=== PATIENT | male | born 1935 | race Caucasian/White ===

== ENCOUNTER → 2020-08-31 14:21 | Outpatient (BNVA) | payer MEDICARE, OTHER, SELFPAY | PROVIDERS: PCP Family Medicine; Visit Provider Internal Medicine Cardiovascular Disease | DX: I47.2 Ventricular tachycardia (principal) | CPT/HCPCS: 80048; 83735 ==

== ENCOUNTER 2020-12-28 09:55 | Emergency (ER) | payer MEDICARE, OTHER, SELFPAY ==
[2020-12-28 10:05] VITALS: BP 184/95; PULSE 84; RESP 19; TEMP 36.9; O2SAT 93; BMI 30.2
--- NOTE | 2020-12-28 10:19 | ED_ITS ---
HPI - Male Genitourinary General: Chief complaint: Urogenital-Male Stated complaint: TROUBLE USING RESTROOM Time Seen by Provider: 12/28/20 09:56 History of Present Illness: HPI Narrative: 85-year-old male presents emergency room with complaints of difficulty urinating. On he was seen at a local ER in [place] with urinary retention and had a leg bag placed with a Caro. 2 days later he remove the catheter at home did not see an attending physician. He is not currently taking any tamsulosin 1 or alpha blockers. Now he is complaining of lower pelvic cramping and discomfort has not been able to urinate for over 24 hours. MD Complaint: other (Unable to urinate) Onset (ago): day(s) Duration: constant Location: abdomen Severity: moderate Quality: aching Relieving factors: rest Exacerbating factors: movement Associated symptoms: Reports urinary retention; Deny discharge, dysuria, fevers/chills, hematuria, nausea, rash, swelling, urinary incontinence, mass or vomiting Review of Systems Const: Denies: fever(s), chills, body aches, change in appetite, fatigue or malaise ENMT: Denies: throat pain, ear or mastoid pain, nasal discharge or nasal congestion Card: Denies: chest pain, edema, dyspnea on exertion or orthopnea Resp: Denies: dyspnea, productive cough or non-productive cough GI: Denies: nausea or vomiting : Denies: dysuria, urinary incontinence or hematuria Skin/Breast: Denies: rash or pruritus Physical Exam Const: COMMON NORMALS: no acute distress GENERAL APPEARANCE: cooperative and comfortable ORIENTATION/CONSCIOUSNESS: Yes awake, Yes oriented to person, Yes oriented to place and Yes oriented to time HENMT: COMMON NORMALS: normocephalic, atraumatic, hearing grossly normal bilaterally, external ears normal, moist oral mucous membranes and oropharynx normal HEAD & SCALP: normocephalic and atraumatic EXTERNAL EAR: Yes external ears normal Neck/C-Spine: COMMON NORMALS: no JVD Resp: COMMON NORMALS: normal respiratory effort, No retractions, No use of accessory muscles and clear to auscultation bilaterally AUSCULTATION: clear to auscultation bilaterally Cardio: COMMON NORMALS: no JVD, regular rate, regular rhythm and No murmurs present (Cardio) RATE: regular rate RHYTHM: regular rhythm GI: COMMON NORMALS: Soft to palpation and No hepatosplenomegaly present AUSCULTATION: Yes normoactive bowel sounds PALPATION: Yes Soft to palpation, No Tenderness to palpation present (GI), No Guarding due to palpation present (GI) and Yes No hepatosplenomegaly present Extremity: COMMON NORMALS: normal to inspection, capillary refill normal, no clubbing, cyanosis or edema, no calf tenderness and no pedal edema Neuro: SENSORIUM/ORIENTATION: Yes oriented to person, Yes oriented to place and Yes oriented to time Skin: COMMON NORMALS: no rashes or lesions noted GENERAL SKIN EXAM: no rash es or lesions noted Course Vital Signs: Vital signs: Vital Signs Temperature 98.4 F 12/28/20 10:05 Pulse Rate 70 12/28/20 12:15 Respiratory Rate 18 12/28/20 12:15 Blood Pressure 104/88 12/28/20 12:15 Pulse Oximetry 92 12/28/20 12:15 MDM - Male MDM Narrative: Medical decision making narrative: Catheter placed patient large amount of urine output. We will go ahead and discharge home with leg bag in place start him on tamsulosin follow-up with Dr. Valenzuela advised him to leave the catheter in place until he seen Dr. Valenzuela. Additionally added lisinopril for his blood pressure. Lab Data: Labs: Lab Results 12/28/20 12/28/20 12/28/20 Range/Units 10:38 12:15 12:15 WBC Cancelled Corrected WBC Cancelled RBC Cancelled Hgb Cancelled Hct Cancelled MCV Cancelled MCH Cancelled MCHC Cancelled RDW Cancelled Plt Count Cancelled MPV Cancelled Gran % Cancelled Neut % (Auto) Cancelled Lymph % (Auto) Cancelled [place] % (Auto) Cancelled Eos % (Auto) Cancelled Baso % (Auto) Cancelled Neut # (Auto) Cancelled Lymph # (Auto) Cancelled [place] # (Auto) Cancelled Eos # (Auto) Cancelled Baso # (Auto) Cancelled Absolute Gran (aut o) Cancelled Nucleated RBC % (a uto) Cancelled Nucleated RBCs # Cancelled Sodium Cancelled Potassium Cancelled Chloride Cancelled Carbon Dioxide Cancelled Anion Gap Cancelled BUN Cancelled Creatinine Cancelled GFR Calculation Cancelled Glucose Cancelled Calculated Osmolal ity Cancelled Calcium Cancelled Urine Color Yellow (Yellow) Urine Appearance Sl hazy (CLEAR) Urine pH 6 (5-7) Ur Specific Gravit y 1.015 (1.005-1.030) Urine Protein Neg (Negative) Urine Glucose (UA) Norm (Normal) Urine Ketones Negative (Negative) Urine Blood 3+ H (Negative) Urine Nitrate Negative (Negative) Urine Bilirubin Neg (Negative) Urine Urobilinogen Norm (Negative) mg/dL Ur Leukocyte Yara ase Negative (Negative) Urine RBC 50-80 H (0-2) /hpf Urine WBC 0-4 H (0-5) /hpf Ur Squamous Epith Cells 0-4 H (0-5) /hpf Amorphous Sediment Not Reportable Urine Bacteria 2+ H (NONE) /hpf Discharge Plan Discharge Patient Disposition: Home Clinical Impression: Acute retention of urine, Benign prostatic hyperplasia, Bladder outlet obstruction Condition: Stable Prescriptions: New lisinopril 10 mg tablet 10 mg PO DAILY Qty: 30 RF: 0 tamsulosin 0.4 mg capsule 0.4 mg PO DAILY Qty: 30 RF: 0 No Action amlodipine 5 mg tablet 5 mg PO DAILY Qty: 90 RF: 0 potassium chloride 10 mEq tablet extended release See Rx Instructions .ROUTE .COMPLEX Qty: 90 RF: 0 simvastatin 40 mg tablet See Rx Instructions .ROUTE .COMPLEX Qty: 90 RF: 0 Discharge Orders: Discharge ED (Routine); Ordered 12/28/20 Ordered By: Andrew lLoyd Referrals: Lynne Camp MD [Primary Care Provider] - Discharge Diet: Usual diet Discharge Activity: Increase activity as tolerated Patient Instructions: Opioid Safety Activity Restrictions/Additional Instructions: This management will call to set up a follow-up with Dr. Valenzuela. Please leave the Caro cath in place until you see Dr. Valenzuela. We have also added a blood pressure medicine and a medicine for your prostate to relieve the urinary retention. If you have worsening problems return to the emergency room. 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
[2020-12-28 11:12] LABS: Add Urine Microscopic? YES; Bilirubin Urine Neg (Negative); Blood Urine 3+ (Negative); Glucose Urine UA Norm (Normal); Ketones Urine Negative (Negative); Leukocyte Esterase Urine Negative (Negative); Nitrate Urine Negative (Negative); Protein Urine Neg (Negative); Specific Gravity, Urine 1.015 (1.005-1.030); Urine Appearance SL Hazy (CLEAR); Urine Color Yellow (Yellow); Urobilinogen Urine Norm (Negative); pH Urine 6 (5-7)
[2020-12-28 11:24] LABS: RBC Urine 50-80 /hpf (0-2)
[2020-12-28 11:25] LABS: Add Urine Culture? Yes; Bacteria Urine 2+ /hpf; Squamous Epithelial Cell Urine 0-4 /hpf (0-5); WBC Urine 0-4 /hpf (0-5)
[2020-12-28 12:15] VITALS: BP 104/88; PULSE 70; RESP 18; O2SAT 92
== END 2020-12-28 12:22 | disposition home or self-care (01) ==
PROVIDERS: Emergency Provider Family Medicine; PCP Family Medicine
DX: N40.1 Benign prostatic hyperplasia with lower urinary tract symptoms (principal); R33.8 Other retention of urine; N13.8 Other obstructive and reflux uropathy
CPT/HCPCS: 51702; 81001; 85025; 87086; 99283

== ENCOUNTER → 2021-01-03 08:51 | Outpatient (BNVA) | payer MEDICARE, OTHER, SELFPAY | PROVIDERS: PCP Family Medicine; Visit Provider Nurse Practitioner Family | DX: I10 Essential (primary) hypertension (principal) | CPT/HCPCS: 80053; 80061; 84443; 85025 ==

== ENCOUNTER → 2021-02-08 14:33 | Outpatient (BNVA) | payer MEDICARE, OTHER, SELFPAY | PROVIDERS: PCP Family Medicine; Visit Provider Nurse Practitioner Family | DX: R79.89 Other specified abnormal findings of blood chemistry (principal) | CPT/HCPCS: 80076 ==

== ENCOUNTER 2021-03-18 10:16 | Outpatient (CLI) | payer MEDICARE, OTHER, SELFPAY ==
--- NOTE | 2021-03-18 11:00 | US_ITS ---
WS: [id number] Complete ABDOMINAL ULTRASOUND HISTORY: R74.8 - Abnormal levels of other serum enzymes COMPARISON: 01/08/2018 renal ultrasound Liver: 15.7 cm in length. Liver is normal size. Mild coarsened echotexture is probably from hepatic s teatosis. The entire liver is poorly visualized. Gallbladder: Normally distended gallbladder with stones. There are stones layering in the dependent p ortion with shadowing. Gallbladder wall thickness: 0.3 cm. Pancreas: Not well seen. CBD: 0.7 cm. Right kidney: 10.6 cm x 5.5 cm x 6.3 cm. Normal size kidney. Exophytic solid mass from the mid later al RIGHT kidney measures 3.8 x 4.3 x 4.2 cm and has increased in size since 2011. Slight increase in size since 01/08/2018 ultrasound also. Left kidney: 11.0 cm x 5.8 cm x 5.5 cm. No mass, cortical thickening or hydronephrosis. Spleen: Normal size and echogenicity. Poorly visualized aorta and IVC. No ascites. US/US abdomen complete* [id number] IMPRESSION: 1. Technically limited evaluation of the abdominal structures. 2. Cholelithiasis without acute cholecystitis. 3. No bile duct dilatation. 4. Mild progression in size of the RIGHT renal mass now measuring 3.8 x 4.3 x 4.2 cm. Most consistent with a renal cell neoplasm.
== END 2021-03-18 10:17 | disposition home or self-care (01) ==
LOC: US 10:19
PROVIDERS: PCP Family Medicine; Visit Provider Nurse Practitioner Family
DX: R74.8 Abnormal levels of other serum enzymes (principal); K80.20 Calculus of gallbladder without cholecystitis without obstruction
CPT/HCPCS: 76700

== ENCOUNTER → 2021-05-10 15:28 | Outpatient (BNVA) | payer MEDICARE, OTHER, SELFPAY | PROVIDERS: PCP Family Medicine; Visit Provider Urology | DX: N40.1 Benign prostatic hyperplasia with lower urinary tract symptoms (principal) | CPT/HCPCS: 81003 ==

== ENCOUNTER → 2021-07-14 00:01 | Outpatient (BNVA) | payer MEDICARE, OTHER, SELFPAY | PROVIDERS: PCP Family Medicine; Visit Provider Nurse Practitioner Family | DX: I10 Essential (primary) hypertension (principal); R10.11 Right upper quadrant pain; K80.20 Calculus of gallbladder without cholecystitis without obstruction; E78.5 Hyperlipidemia, unspecified | CPT/HCPCS: 80053; 80061; 84443; 85025 ==

== ENCOUNTER → 2021-09-20 09:47 | Outpatient (BNVA) | payer MEDICARE, OTHER, SELFPAY | PROVIDERS: PCP Family Medicine; Visit Provider Surgery | DX: Z20.822 Contact with and (suspected) exposure to COVID-19 (principal); Z11.52 Encounter for screening for COVID-19 | CPT/HCPCS: 87635 ==

== ENCOUNTER → 2021-09-30 11:23 | Outpatient (BNVA) | payer MEDICARE, OTHER, SELFPAY | PROVIDERS: PCP Family Medicine; Visit Provider Surgery | DX: Z01.812 Encounter for preprocedural laboratory examination (principal); Z20.822 Contact with and (suspected) exposure to COVID-19 | CPT/HCPCS: 87635 ==

== ENCOUNTER 2021-10-06 08:32 | Day surgery (SDC) | payer MEDICARE, OTHER, SELFPAY ==
[2021-09-23 17:24] VITALS: BMI 32.0
[2021-10-06] VITALS (10 sets, daily range): BP systolic 104–148; BP diastolic 66–95; PULSE 70–86; RESP 16–23; TEMP 36.1–37.1; O2SAT 92–98
[2021-10-06] MEDS: sodium chloride 0.9% 1,000 ML 30 ML IV (09:21)
--- NOTE | 2021-10-06 09:23 | P.ANESASSM_ITS ---
Pre-Anesthetic Assessment Pre-Anesthetic Assessment: Height/Weight: Height 1.57 m Weight 79.379 kg Temp Pulse Resp BP Pulse Ox 98.2 F 86 18 148/95 95 10/06/21 08:52 10/06/21 08:52 10/06/21 08:52 10/06/21 08:52 10/06/21 08:52 Preop Diagnosis: Cholelithiasis Proposed Procedure: Operation Date: 10/06/21 10:30 Proposed Procedures p Laparoscopic Cholecystectomy 07312 K80.20(Not Applicable) - Deepak Cordova MD Was Beta Felix taken within 24 hours: Yes Was Clonidine taken within 24 hours: N/A Last intake: Intake Last Liquid Date 10/05/21 Last Liquid Time 22:00 Last Solid Date 10/05/21 Last Solid Time 15:30 Social: Social History: No alcohol and No tobacco Exam: Pre-Anes Outpt Exam: alert, oriented x 3, clear to auscultation bilate rally and regular rate & rhythm Airway: Submandibular: WNL Cervical ROM: WNL (Limited neck ROM) MP: 1 Dentition: Partials Additional comments: Upper dentures History/ROS: No significant history except as noted Pulmonary: Pulmonary: None reported CV/HEM: CV/HEM: CHF and HTN Comments: Ventricular tachycardia, pacemaker in place. Per patient for poorly controlled SVT. Patient denies CAD, CHF. METS = 4 : Comments: BPH Hepatic: Comments: Elevated AST/ALK GI: GI: None reported Metabolic: Metabolic: None reported Musc/skel: Musc/skel: None reported Neuropsych: Neuropsych: None reported Anesthetic Plan: ASA status: 3 Anesthesia: Anesthesia Evaluation and General Risk of > 500 ml blood loss (7ml/kg in children): No Meds/Allergies Current Medications: Current Medications Generic Name Dose Route Start Last Admin Trade Name Freq PRN Reason Stop Dose Admin Sodium Chloride 1,000 mls @ 30 ml s/hr 10/06/21 08:45 10/06/21 09:21 Sodium Chloride 0.9% IV 10/07/21 08:44 30 mls/hr .Q24H NAVJOT Administration PFSH Anesthesia PFSH: Medical History BPH loc w urin obs/LUTS Cardiomyopathy Elevated PSA Hx of radioactive iodine thyroid ablation (~04/2018) Hypertension PAF (paroxysmal atrial fibrillation) Renal mass Urinary retention Ventricular tachycardia Surgical History (Updated 07/22/21 @ 08:56 by Deepak Cordova MD) H/O shoulder surgery left History of back surgery History of permanent cardiac pacemaker placement (~09/2018) Hx of appendectomy Hx of hernia repair Family History Family/Other CAD (coronary artery disease) Stroke Hypertension Mother , in her 80's Diabetes Father , at age 99 No problems noted. Social History Second hand smoke exposure: No Alcohol intake: never Caregiver/support person: Yes Lives independently: Yes Household members: spouse Marital status: Current occupational status: retired History of recent travel: No Current gender identity: Female Special zenobia needs: No Agree to transfusion: Yes Data Anesthesia Cardiac Studies: No Data to Display
--- NOTE | 2021-10-06 09:49 | P.HP_ITS ---
Same Day Surgery H&P Indication for Procedure/HPI DATE OF PROCEDURE: October 06, 2021 CHIEF COMPLAINT/INDICATIONFOR SURGICAL PROCEDURE: cholelithiasis for lap joselito PREOP DIAGNOSIS: Cholelithiasis PLANNED PROCEDRUE: Operation Date: 10/06/21 10:30 Proposed Procedures p Laparoscopic Cholecystectomy 84680 K80.20(Not Applicable) - Deepak Cordova MD Medications/Allergies* Home Medications Medication Instructions Recorded Confirmed Type aspirin 325 mg tablet 325 mg PO DAILY 01/13/21 10/05/21 History magnesium oxide 400 mg PO DAILY 05/10/21 10/05/21 History metoprolol tartrate 25 mg tablet 12.5 mg PO DAILY tab 05/10/21 10/05/21 History Allergies/Adverse Reactions Allergy/AdvReac Type Severity Reaction Status Date / Time codeine AdvReac Unknown anxiety Verified 09/23/21 17:19 Current Medications: Generic Name Dose Route Start Last Admin Trade Name Freq PRN Reason Stop Dose Admin Sodium Chloride 1,000 mls @ 30 mls/hr 10/06/21 08:45 10/06/21 09:21 Sodium Chloride 0.9% IV 10/07/21 08:44 30 mls/hr .Q24H NAVJOT Administration Pertinent History/Comorbid Conditions* Medical History (Updated 07/14/21 @ 16:54 by MAGNUS Rodriguez) BPH loc w urin obs/LUTS Cardiomyopathy Elevated PSA Hx of radioactive iodine thyroid ablation (~04/2018) Hypertension PAF (paroxysmal atrial fibrillation) Renal mass Urinary retention Ventricular tachycardia Surgical History (Updated 07/22/21 @ 08:56 by Deepak Cordova MD) H/O shoulder surgery left History of back surgery History of permanent cardiac pacemaker placement (~09/2018) Hx of appendectomy Hx of hernia repair Family History (Updated 12/31/20 @ 15:40 by Susana Fitch LPN, RT) Father, at age 99 Mother, in her 80's Diabetes Mother CAD (coronary artery disease) Family/Other Hypertension Family/Other Stroke Family/Other Social History Second hand smoke exposure: No Alcohol intake: never Caregiver/support person: Yes Lives independently: Yes Household members: spouse Marital status: Current occupational status: retired History of recent travel: No Current gender identity: Female Special zenobia needs: No Agree to transfusion: Yes Pertinent Exam Findings alert, oriented x 3 and regular rate & rhythm Recommendations Surgery/Procedure today 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
--- NOTE | 2021-10-06 12:33 | SUR.PHASEI ---
PT AWAKE ALERT ORIENTED X 3 VSS ABD LARGE SOFT WITH 4 SITES WITH DERMABOND D/I PT ON 3LNC SATS 96%
--- NOTE | 2021-10-06 12:35 | PM.OP ---
Operative Report Date of procedure: October 06, 2021 Pre-op Diagnosis: Cholelithiasis Post-op diagnosis: same Procedure Done: Laparoscopic cholecystectomy Specimens removed/disposition: Gallbladder Surgeon: Deepak Cordova Anesthesia: General Condition: stable Disposition: PACU Procedure: The patient was taken to the operating room and was intubated under general anesthesia. After the antibiotic had been administered, the abdomen was prepped and draped in a sterile manner. Using a #15 blade, a 1 centimeter infraumbilical curvilinear incision was made and using an open Pelon technique the peritoneal cavity was entered. A 10 millimeter port was placed and 15 millimeters of pneumoperitoneum was created. A 10 millimeter, 30 degrees scope was then introduced. Three 5 millimeter ports were placed in the epigastric, midclavicular and the anterior axillary line two fingerbreadths below the costal margin on the right side under the direct visualization. Ratcheted forceps were introduced into the lateral most port and was used to retract the fundus of the gallbladder cephalad and using forceps the infundibulum of the gallbladder was retracted laterally. Using L-hook cautery the peritoneum overlying the Calot's triangle was opened medially and laterally until the cystic duct and the cystic artery were skeletonized. Dissection was carried along the body of the gallbladder and after ensuring critical view of safety, 4 clips applied on the cystic duct and 3 clips applied on the cystic artery and cut leaving, 3 clips on the remaining portion of the duct and 2 clips on the remaining portion of the artery. The rest of the gallbladder was dissected off the liver using L-hook cautery. There was an opening in the body of the gallbladder with spillage of bile which was irrigated and suctioned out. There was no spillage of stones. There was no bleeding or bile leakage noted from the gallbladder fossa and the clips appeared to be in place. An EndoCatch bag was introduced to remove the gallbladder. All the ports were removed under direct visualization and there was no bleeding noted from the port sites. The fascia of the umbilicus was closed using [id number] 0 Vicryl sutures and the subcutaneous tissue was approximated using 3-0 Vicryl sutures. The skin at all four ports were closed using 4-0 Monocryl and Dermabond. A total of 10 millimeters of 0.5% Marcaine was infiltrated around the port sites. The patient was stable throughout the procedure.
--- NOTE | 2021-10-06 13:32 | ANE.PACU2 ---
Inpatient post-anesthesia follow up: Airway intact: Yes Vital signs: Temperature 97 F Pulse Rate 72 Respiratory Rate 16 Blood Pressure 124/70 Pulse Oximetry 96 Oxygen Delivery Me thod Nasal Cannula Oxygen Flow Rate 1 Fraction of Inspir ed Oxygen Hydration adequate: Yes Nausea and vomiting: No Pain level: 2 Mental status: Baseline
[2021-10-06] MEDS: HYDROcodone-acetaminophen 5-325 mg Tablet 1 TAB PO (13:39)
== END 2021-10-06 13:49 | disposition home or self-care (01) ==
PROVIDERS: PCP Family Medicine; Visit Provider Surgery
PROC: 0FT44ZZ Resection of Gallbladder, Percutaneous Endoscopic Approach (ICD-10-PCS; CPT 47562; principal; 2021-10-06 10:30)
DX: K80.10 Calculus of gallbladder with chronic cholecystitis without obstruction (principal); Z79.82 Long term (current) use of aspirin; N40.1 Benign prostatic hyperplasia with lower urinary tract symptoms; N13.8 Other obstructive and reflux uropathy; Z82.49 Family history of ischemic heart disease and other diseases of the circulatory system; Z83.3 Family history of diabetes mellitus; I11.0 Hypertensive heart disease with heart failure; I50.9 Heart failure, unspecified; N40.0 Benign prostatic hyperplasia without lower urinary tract symptoms
CPT/HCPCS: 47562; 88304; J0690; J1100; J2405; J2704; J2710; J3010; J3490; J7030

== ENCOUNTER → 2021-12-22 11:23 | Outpatient (BNVA) | payer MEDICARE, OTHER, SELFPAY | PROVIDERS: PCP Family Medicine; Visit Provider Nurse Practitioner Family | DX: E78.5 Hyperlipidemia, unspecified (principal); I10 Essential (primary) hypertension; E55.9 Vitamin D deficiency, unspecified; R05.9 Cough, unspecified; J40 Bronchitis, not specified as acute or chronic | CPT/HCPCS: 71046; 80053; 80061; 82306; 82607; 83735; 84443; 85025 ==

== ENCOUNTER 2022-01-26 09:18 | Inpatient (IN) | payer MEDICARE, OTHER, SELFPAY ==
[2022-01-26] VITALS (12 sets, daily range): BP systolic 116–159; BP diastolic 65–90; PULSE 69–105; RESP 16–24; TEMP 36.7–36.8; O2SAT 90–97
--- NOTE | 2022-01-26 10:12 | W.ED.GENADLT ---
HPI - General Adult General: Chief complaint: General Medical Stated complaint: Mucus build up, cough Time Seen by Provider: 01/26/22 09:32 History of Present Illness: 86-year-old male presents to the emergency department chief complaint cough congestion shortness of breath has been ongoing for over a week. The patient reports he was already placed on antibiotic nebs and steroids by his primary care doctor earlier this week which do not seem to be helping he reports his cough is more congestion shortness of breath he does report a history of tobacco use. He reports he has had a persistent cough reports questionable low-grade fever at home reports his got him sick. Patient reports reduced appetite oral intake when she does lost his voice today upon waking up he reports it all started with postnasal drip. Associated symptoms: Reports dyspnea; Deny chest pain, headache(s), malaise, nausea, rash, palpitations or vomiting Review of Systems General: Reports: 10 or more systems reviewed and unremarkable except in HPI and below Const: Denies: fever(s), chills, fatigue or malaise Eyes: Denies: change in vision or blurry vision Card: Denies: chest pain or palpitations Resp: Reports: dyspnea, productive cough and wheezing GI: Denies: abdominal pain, nausea or vomiting : Denies: flank pain Musc: Denies: extremity pain or extremity swelling Skin/Breast: Denies: rash or pruritus Neuro: Denies: headache(s) Psych: Denies: anxiety or depression Stephan/Lymph: Denies: easy bleeding All/Imm: Denies: urticaria, throat swelling or facial swelling [facility] ED PFSH: Medical History BPH loc w urin obs/LUTS Cardiomyopathy Hx of radioactive iodine thyroid ablation (~04/2018) Hypertension PAF (paroxysmal atrial fibrillation) Renal mass Urinary retention Ventricular tachycardia Surgical History H/O shoulder surgery left History of back surgery History of permanent cardiac pacemaker placement (~09/2018) Hx of appendectomy Hx of hernia repair Status post laparoscopic cholecystectomy (10/06/21) Family History Family/Other CAD (coronary artery disease) Stroke Hypertension Mother , in her 80's Diabetes Father , at age 99 No problems noted. Social History Smoking and tobacco status: never smoked Second hand smoke exposure: No Alcohol intake: never Caregiver/support person: Yes Lives independently: Yes Household members: spouse Marital status: Current occupational status: retired History of recent travel: No Current gender identity: Female Special zenobia needs: No Agree to transfusion: Yes Physical Exam Const: COMMON NORMALS: no acute distress, patient oriented x3 and healthy appearing HENMT: OTHER: Moderate nasal congestion and upper respiratory congestion noted moderate pharyngeal erythema with no exudates tongue ulceration noted to the inferior aspect of it no stridor noted Eye: COMMON NORMALS: Equal, round and reactive pupils present and EOMs intact bilaterally PUPIL: Yes Equal, round and reactive pupils present Neck/C-Spine: COMMON NORMALS: full ROM, supple and no JVD Lymph: LYMPHATIC: no lymphadenopathy noted Chest: COMMONS NORMALS: normal inspection of the chest and normal palpation of entire chest wall Resp: OTHER: Moderate expiratory wheezing noted on exam diminished in the bases noted bilaterally no obvious crackles noted questionable rhonchi. Cardio: COMMON NORMALS: no JVD, regular rate and regular rhythm RATE: regular rate RHYTHM: regular rhythm GI: COMMON NORMALS: Normal to inspection, nondistended, normoactive bowel sounds present, Soft to palpation and non-tender INSPECTION: Yes normal to inspection PALPATION: Yes Soft to palpation : COMMON NORMALS: Yes no CVA tenderness BLADDER/KIDNEY EXAM: Yes no CVA tenderness Back/Pelvis: COMMON NORMALS: no CVA tenderness Extremity: COMMON NORMALS: normal to inspection and full ROM Neuro: COMMON NORMALS: patient oriented x3, CN's II-XII intact bilaterally, moves all extremities and no focal motor deficits Psych: COMMON NORMALS: mental status grossly normal, Normal thought process present, cooperative and normal affect THOUGHT PROCESS: Normal thought process present Skin: COMMON NORMALS: no rashes or lesions noted GENERAL SKIN EXAM: no rashes or lesions noted Course Vital Signs: Vital signs: Vital Signs Temperature 98.1 F 01/26/22 09:27 Pulse Rate 105 H 01/26/22 13:11 Respiratory Rate 20 H 01/26/22 11:36 Blood Pressure 145/82 01/26/22 15:32 Pulse Oximetry 92 01/26/22 15:32 [facility] - General Adult Medical Decision Making Due to the patient's symptoms and condition lab work and imaging will be obtained we will continue to follow. Patient will be provided neb treatments. Lab contacted us that noted that he was hyponatremic unsure this is due to reduced oral intake of sodium or him being on lisinopril we will give him an IV fluid bolus of normal saline and repeat we will continue to follow. Patient was found to have acute bronchitis but more so concerning is found to be hyponatremic patient was provided several fluid boluses with to no avail which his sodium increased only 117 to 119 mg/dL due to this with increased risk of seizure activity or additional secondary findings patient only be admitted to spoke to Dr. Monge hospitalist service is granted acceptance patient remains in stable condition at this time. Lab Data : 01/26/22 11:14 01/26/22 14:21 Radiology Impressions Chest X-Ray 01/26/22 10:51 Impression: 1. Cardiomegaly and atherosclerosis. 2. Cardiac pacemaker. Laboratory Results WBC 13.7 10^3/uL (4.0-10.0) H 01/26/22 11:14 RBC 4.03 10^6/uL (4.1-5.3) L 01/26/22 11:14 Hgb 12.5 g/dL (11.7-16.6) 01/26/22 11:14 Hct 37.0 % (42.0-52.0) L 01/26/22 11:14 MCV 91.8 fl (80-94) 01/26/22 11:14 MCH 31.0 pg (28.0-34.0) 01/26/22 11:14 MCHC 33.8 g/dL (30.0-36.0) 01/26/22 11:14 RDW 12.8 % (12.1-15.1) 01/26/22 11:14 Plt Count 258 10^3/cmm (130-400) 01/26/22 11:14 MPV 9.9 fL (7.4-10.4) 01/26/22 11:14 Neut % (Auto) 71.5 % 01/26/22 11:14 Lymph % (Auto) 12.2 % 01/26/22 11:14 [place] % (Auto) 13.3 % 01/26/22 11:14 Eos % (Auto) 0.3 % 01/26/22 11:14 Baso % (Auto) 0.4 % 01/26/22 11:14 Neut # (Auto) 9.78 10^3/uL (1.8-7.7) H 01/26/22 11:14 Lymph # (Auto) 1.7 10^3/uL (0.8-4.8) 01/26/22 11:14 [place] # (Auto) 1.8 10^3/uL (0.2-0.9) H 01/26/22 11:14 Eos # (Auto) 0.0 10^3/uL (0.0-0.8) 01/26/22 11:14 Baso # (Auto) 0.1 10^3/uL (0.0-0.1) 01/26/22 11:14 Nucleated RBC % (auto) 0 % 01/26/22 11:14 Nucleated RBCs # 0.0 /100WBC 01/26/22 11:14 Sodium 119 mmol/L (136-145) L* 01/26/22 14:21 Potassium 4.2 mmol/L (3.5-5.1) 01/26/22 14:21 Chloride 84 mmol/L (98-107) L 01/26/22 14:21 Carbon Dioxide 25 mmol/L (22-29) 01/26/22 14:21 Anion Gap 14.2 (5-19) 01/26/22 14:21 BUN 12 mg/dL (8-23) 01/26/22 14:21 Creatinine 0.5 mg/dL (0.7-1.2) L 01/26/22 14:21 GFR Calculation Not Reportable 01/26/22 14:21 Glucose 122 mg/dL (65-115) H 01/26/22 14:21 Calculated Osmolality 249 mOsm/kg (285-295) L 01/26/22 14:21 Calcium 8.6 mg/dL (8.5-10.5) 01/26/22 14:21 Total Bilirubin 0.7 mg/dL (0.15-1.2) 01/26/22 11:14 AST 42 U/L (0-40) H 01/26/22 11:14 ALT 17 U/L (0-41) 01/26/22 11:14 Alkaline Phosphatase 88 IU/L (40-130) 01/26/22 11:14 C-Reactive Protein 7.8 mg/L (0.0-4.9) H 01/26/22 11:14 Total Protein 6.9 g/dL (6.6-8.7) 01/26/22 11:14 Albumin 3.8 g/dL (3.5-5.2) 01/26/22 11:14 Globulin 3.1 g/dL (1.3-4.6) 01/26/22 11:14 Discharge Plan Discharge Patient Disposition: Admitted As Inpatient Clinical Impression: Acute hyponatremia, Bronchitis Condition: Stable 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
--- NOTE | 2022-01-26 10:51 | XR_ITS ---
WS: [id number] PA and lateral chest, 01/26/2022 Clinical Data: shortness of breath Comparison: PA and lateral chest, 12/22/2021. Findings: No nodules, masses or effusions are seen. The heart is slightly enlarged. The right diaphra gm is elevated. There is a 2-lead pacemaker in good position with the generator overlying the right t horax. The aortic arch and descending thoracic aorta show calcification. There are orthopedic anchors in left humeral head. There are right upper quadrant clips from a cholecystectomy. XR/XR chest 2V* [id number] Impression: 1. Cardiomegaly and atherosclerosis. 2. Cardiac pacemaker.
[2022-01-26] MEDS: ipratropium-albuterol 3 mL Neb INHALATION (10:55)
--- NOTE | 2022-01-26 11:18 | PC.PHAR ---
PT STATES HE DECIDED NOT TO TAKE THE AZITHROMYCIN BECAUSE IT WASN'T WORKING. PT STOPPED USING PROMETHAZINE-DM BECAUSE IT MADE HIM COUGH MORE. PT STATES THAT HIS DOCTOR ALSO CHANGED THE DOSE OF HIS TAMSULOSIN TO ONE A DAY INSTEAD OF BID. PT ALSO DOES NOT WANT TO TAKE LEVOCETIRIZINE, STATES HE TAKES TO MANY PILLS.
[2022-01-26 11:30] LABS: Basophils # 0.1 10^3/uL (0.0-0.1); Basophils % 0.4 %; Eosinophils % 0.3 %; Hemoglobin 12.5 g/dL (11.7-16.6); Lymphocytes # 1.7 10^3/uL (0.8-4.8); Lymphocytes % 12.2 %; Mean Corpuscular HGB Conc 33.8 g/dL (30.0-36.0); Mean Corpuscular Volume 91.8 fl (80-94); Mean Platelet Volume 9.9 fL (7.4-10.4); Monocytes # 1.8 10^3/uL (0.2-0.9); Monocytes % 13.3 %; Neutrophils # 9.78 10^3/uL (1.8-7.7); Neutrophils % 71.5 %; Nucleated Red Blood Cells % 0 %; Platelet Count 258 10^3/cmm (130-400); Red Blood Count 4.03 10^6/uL (4.1-5.3); Red Cell Distribution Width 12.8 % (12.1-15.1); White Blood Count 13.7 10^3/uL (4.0-10.0)
[2022-01-26] MEDS: sodium chloride 0.9% 500 ML IV (11:32)
[2022-01-26] MEDS: dexamethasone 10 mg/mL INJ 6 MG IVP (11:33)
[2022-01-26 11:56] LABS: Alanine Aminotransferase 17 U/L (0-41); Albumin Level 3.8 g/dL (3.5-5.2); Alkaline Phosphatase 88 IU/L (40-130); Aspartate Amino Transferase 42 U/L (0-40); Blood Urea Nitrogen 12 mg/dL (8-23); C Reactive Protein 7.8 mg/L (0.0-4.9); Calcium 9.2 mg/dL (8.5-10.5); Carbon Dioxide 24 mmol/L (22-29); Chloride 82 mmol/L (98-107); Globulin 3.1 g/dL (1.3-4.6); Glucose 120 mg/dL (65-115); Osmolality Calculated 245 mOsm/kg (285-295); Total Bilirubin 0.7 mg/dL (0.15-1.2); Total Protein 6.9 g/dL (6.6-8.7)
[2022-01-26 11:57] LABS: Anion Gap 15.1 (5-19); Potassium 4.1 mmol/L (3.5-5.1); Sodium 117 mmol/L (136-145)
[2022-01-26] MEDS: sodium chloride 0.9% 500 ML 999 ML IV (12:24)
--- NOTE | 2022-01-26 14:13 | PC.NURSE ---
Patient in bed, family at bedside. Patient denies any needs at this time. Updated on plan of care.
[2022-01-26 14:56] LABS: Blood Urea Nitrogen 12 mg/dL (8-23); Calcium 8.6 mg/dL (8.5-10.5); Carbon Dioxide 25 mmol/L (22-29); Chloride 84 mmol/L (98-107); Glucose 122 mg/dL (65-115); Osmolality Calculated 249 mOsm/kg (285-295)
[2022-01-26 14:58] LABS: Anion Gap 14.2 (5-19); Potassium 4.2 mmol/L (3.5-5.1); Sodium 119 mmol/L (136-145)
[2022-01-26] MEDS: benzonatate 100 mg Capsule 200 MG PO ×2 (16:25→22:30)
[2022-01-26] MEDS: enoxaparin 40 mg/0.4 mL Syringe SUBCUT (18:29)
--- NOTE | 2022-01-26 18:37 | P.HP_ITS ---
Providers/Chief Complaint Admitting Physician: Fabián Monge MD Primary Care Provider: Lynne Camp MD Chief Complaint: Mucus build up, cough History of Present Illness Delfin Deng is a 86 year old male with past medical history of hypertension, paroxysmal atrial fibrillation , cardiac pacemaker placement , Hx of radioactive iodine thyroid ablation, Renal mass, came in with chief complaint of shortness of breath , nonproductive cough , runny nose , postnasal drip , headache, going on for about a week , he was seeing his primary care physician for the same problem and was on steroids antibiotics and inhaler. He denies any fever, chills, fatigue, nausea , vomiting , tingling , numbness. Upon arrival in the ER he was worked up for above mentioned complaint: Pertinent imaging studies: X-ray chest: : No nodules, masses or effusions are seen Pertinent labs: WBC 13.7, H&H 12 ..5 / 37 , PLT : 258 , Serum sodium 119 , serum potassium 4.2 , BUN / serum creatinine 12/ 0 .5 , Review of Systems General: Reports: 10 or more systems reviewed and unremarkable except in HPI and below Const: Denies: fever(s), chills, body aches, change in appetite or diaphoresis Card: Denies: palpitations, edema or leg pain with exertion Resp: Denies: pain on inspiration GI: Denies: abdominal pain, nausea, vomiting, diarrhea or constipation : Denies: flank pain or difficulty urinating Musc: Denies: back pain, extremity pain or extremity swelling Neuro: Denies: headache(s), difficulty walking or confusion Medications/Allergies Home Medications Medication Instructions Recorded Confirmed Last Taken Type aspirin 325 mg tablet 325 mg PO DAILY 01/13/21 01/26/22 01/26/22 History magnesium oxide 400 mg PO DAILY 05/10/21 01/26/22 01/26/22 History metoprolol tartrate 25 mg tablet 12.5 mg PO DAILY tab 05/10/21 01/26/22 01/26/22 History lisinopril 10 mg tablet 10 mg PO DAILY #90 tab 09/02/21 01/26/22 01/26/22 Rx docusate sodium 100 mg capsule 100 mg PO BID #30 cap 10/06/21 01/26/22 01/26/22 Rx (Colace) pantoprazole 40 mg tablet,delayed 40 mg PO BID #180 tab 12/22/21 01/26/22 01/26/22 Rx release albuterol sulfate 90 mcg/actuation 2 puff INHALATION QID PRN #8.5 g 01/20/22 01/26/22 01/26/22 Rx aerosol inhaler (ProAir HFA) budesonide-formoterol HFA 160 2 puff INHALATION BID #10.2 g 01/20/22 01/26/22 01/26/22 Rx mcg-4.5 mcg/actuation aerosol inhaler (Symbicort) methylprednisolone 4 mg tablets in See Rx Instructions PO PER PKG DIR 01/20/22 01/26/22 01/26/22 Rx a dose pack (Medrol (Cornelius)) #21 ea dextromethorphan-guaifenesin 5 10 ml PO Q6H PRN #200 ml 01/23/22 01/26/22 01/26/22 Rx mg-100 mg/5 mL oral liquid (Mucinex Fast-Max DM Max) amlodipine 5 mg tablet 5 mg PO DAILY 01/26/22 01/26/22 01/26/22 History finasteride 5 mg tablet 5 mg PO DAILY 01/26/22 01/26/22 01/26/22 History fluticasone 100 mcg-salmeterol 50 2 inh INHALATION BID 01/26/22 01/26/22 Unknown History mcg/dose blistr powdr for inhalation (Advair Diskus) simvastatin 40 mg tablet 40 mg PO DAILY 01/26/22 01/26/22 01/26/22 History tamsulosin 0.4 mg capsule 0.4 mg PO DAILY 01/26/22 01/26/22 01/26/22 History Allergies Allergy/AdvReac Type Severity Reaction Status Date / Time codeine AdvReac Unknown anxiety Verified 01/26/22 11:17 PFSH Acute PFSH: Medical History (Updated 01/26/22 @ 18:44 by Fabián Monge MD) BPH loc w urin obs/LUTS Cardiomyopathy Hx of radioactive iodine thyroid ablation (~04/2018) Hypertension PAF (paroxysmal atrial fibrillation) Renal mass Urinary retention Ventricular tachycardia Surgical History (Updated 01/26/22 @ 18:44 by Fabián Monge MD) H/O shoulder surgery left History of back surgery History of permanent cardiac pacemaker placement (~09/2018) Hx of appendectomy Hx of hernia repair Status post laparoscopic cholecystectomy (10/06/21) Family History Family/Other CAD (coronary artery disease) Stroke Hypertension Mother , in her 80's Diabetes Father , at age 99 No problems noted. Social History Smoking and tobacco status: never smoked Second hand smoke exposure: No Alcohol intake: never Caregiver/support person: Yes Lives independently: Yes Household members: spouse Marital status: Current occupational status: retired History of recent travel: No Current gender identity: Female Special zenobia needs: No Agree to transfusion: Yes Vitals/I&O/Wt Last Vital Signs Temp 98.3 F 01/26/22 17:29 Pulse 93 01/26/22 17:29 Resp 18 01/26/22 17:29 BP 116/65 01/26/22 17:29 Pulse Ox 92 01/26/22 17:29 01/26/22 01/26/22 01/26/22 06:59 14:59 22:59 Intake Total 1000 / 1000 Balance 1000 / 1000 Weight last 48 hrs Weight 79.379 kg Weight 79.379 kg Physical Exam Const: COMMON NORMALS: patient oriented x3 HENMT: COMMON NORMALS: normocephalic and atraumatic HEAD & SCALP: normocephalic and atraumatic Chest: CHEST: Yes Symmetrical chest wall rise Resp: COMMON NORMALS: normal respiratory effort, No retractions, No use of a ccessory muscles and clear to auscultation bilaterally EFFORT & INSPECTION: Yes symmetric chest movement AUSCULTATION: clear to auscultation bilaterally Cardio: COMMON NORMALS: regular rate, regular rhythm, S1 normal heart sound present, S2 normal heart sound present, No gallops present (Cardio), No murmurs present (Cardio), No rub (Cardio) and Peripheral pulses 2+ throughout RATE: regular rate RHYTHM: regular rhythm HEART SOUNDS: S1 normal heart sound present and S2 normal heart sound present PERIPHERAL PULSES: Peripheral pulses 2+ throughout GI: COMMON NORMALS: Normal to inspection, nondistended, normoactive bowel sounds present, Soft to palpation, non-tender, No hepatosplenomegaly present and no masses AUSCULTATION: Yes normoactive bowel sounds PALPATION: Yes Soft to palpation and Yes No hepatosplenomegaly present RECTAL EXAM: Yes deferred Extremity: COMMON NORMALS: no clubbing, cyanosis or edema and no pedal edema Neuro: COMMON NORMALS: patient oriented x3 Data : 01/26/22 11:14 01/26/22 14:21 A&P Assessment and plan (1) Hyponatremia: Status: Acute (2) Maxillary sinusitis: Status: Acute (3) Allergic rhinitis: Status: Acute (4) Bronchitis: Status: Acute (5) PAF (paroxysmal atrial fibrillation): Status: Acute (6) Hx of radioactive iodine thyroid ablation: Status: Acute (7) Renal mass: Status: Acute (8) History of permanent cardiac pacemaker placement: Status: Acute Plan 86 year old male with past medical history of hypertension, paroxysmal atrial fibrillation , cardiac pacemaker placement , Hx of radioactive iodine thyroid ablation, Renal mass, came in with chief complaint of shortness of breath , nonproductive cough , runny nose , postnasal drip , headache, going on for about a week , he was seeing his primary care physician for the same problem and was on steroids antibiotics and inhaler. He denies any fever, chills, fatigue, nausea , vomiting , tingling , numbness. #Assessment Euvolemic hyponatremia: Follow BMP every 4 hours TSH Urinalysis Urine sodium Urine osmolality and serum osmolality Lipid profile A.m. cortisol Salt tablet 2 mg twice daily Monitoring output charting Regular diet #History of paroxysmal atrial fibrillation: Currently in sinus Continue telemetry monitoring Continue metoprolol tartrate 12.5 mg p.o. daily #History of hypertension: Continue amlodipine #History of renal mass: Ultrasound abdomen done in March 25: ?Mild progression in size of the RIGHT renal mass now measuring 3.8 x 4.3 x 4.2 cm. Most consistent with a renal cell neoplasm. Follow repeat ultrasound abdomen #Allergic rhinitis: Continue Flonase #Bronchitis: Continue azithromycin #CODE STATUS: Full code #DVT prophylaxis: On Lovenox Attestations Medical Necessity Statement*: Patient needs to be in hospital for management of hyponatremia. Anticipated length of stay greater than 2 midnightS. Time Spent in Patient Care: Greater than 35 minutes (>than 50% of time spent in counselling and/or direct pt care on unit) . 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
--- NOTE | 2022-01-26 18:51 | US_ITS ---
WS: [id number] RENAL ULTRASOUND HISTORY: RIGHT renal mass evaluation COMPARISON: 03/18/2021 TECHNIQUE: 2-D and color Doppler imaging of the kidney submitted. Right kidney: 10.6 cm x 5.9 cm x 6.1 cm. Kidneys normal size. Kidney is very difficult to image. This is probably due to the overlying soft ti ssue hematoma and bruising over the RIGHT lateral abdomen. The renal mass is difficult to visualize d espite repeated attempts. Mass probably measures about 5.3 x 4.5 cm and may have slightly increased i n size the prior exam. Left kidney: 10.0 cm x 5.5 cm x 4.2 cm. Normal echogenicity with no hydronephrosis or mass. Aorta: Normal. Urinary Bladder: Well-distended bladder. The prostate gland is enlarged encroaching into the urinary bladder. Prostate measures 3.9 x 4.3 x 5.2 cm. US/US renal BI* [id number] IMPRESSION: 1. Quality of this examination is limited especially involving the RIGHT kidne y and evaluation of the known RIGHT renal mass. Large area of bruising and kayla michael which is superficial obscuring details of the kidney. The mass is identifi ed measuring 5.3 x 4.5 cm involving the kidney. Recommend short-term follow-up. This mass may have increased in size. Consider ultrasound follow-up after krista ent's subcutaneous hematoma and bruising resolved. 2. No hydronephrosis identified. 3. Prostate gland enlargement.
[2022-01-26] MEDS: azithromycin 500 MG in sodium chloride 0.9% 250 ML 250 MG IV (20:10)
[2022-01-26 21:16] LABS: Add Urine Microscopic? NO; Charge for UA Resulting for Rev
[2022-01-26 21:39] LABS: Urine Appearance Clear (CLEAR); Urine Color Yellow (Yellow); pH Urine 6 (5-7)
[2022-01-26 21:40] LABS: Bilirubin Urine Neg (Negative); Blood Urine Neg (Negative); Glucose Urine UA Norm (Normal); Ketones Urine Negative (Negative); Leukocyte Esterase Urine Negative (Negative); Nitrate Urine Negative (Negative); Protein Urine Neg (Negative); Urobilinogen Urine Norm (Negative)
[2022-01-26 21:50] LABS: Urine Random Sodium 46 mmol/L
[2022-01-26] MEDS: albuterol 8 gm MDI 2 PUFF INHALATION (22:29)
--- NOTE | 2022-01-26 23:45 | ECG_ITS ---
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 Measurements Intervals [place] Rate: 87 P: [place]: QRS: -20 QRSD: 137 T: 26 QT: 386 QTc: 466 Interpretive Statements Sinus rhythm with borderline first-degree AV block, frequent supra ventricular ectopics and VENTRICULAR PREMATURE COMPLEXES INTRAVENTRICULAR CONDUCTION DELAY [130+ ms QRS DURATION] SEPTAL MYOCARDIAL INFARCTION , PROBABLY OLD [40+ ms Q WAVE IN V1/V2] Compared to ECG 07/23/2018 08:14:53 Ventricular premature complex(es) now present Aberrant conduction of supraventricular beat(s) now present Intraventricular conduction delay now present Myocardial infarct finding now present T (T wave) deviation no longer present Electronically Signed On 01-27-2022 17:47:16 CDT by Yanna Carrera M.D. [id number]
[2022-01-27] VITALS (11 sets, daily range): BP systolic 116–154; BP diastolic 67–88; PULSE 78–113; RESP 16–21; TEMP 36.4–36.7; O2SAT 89–97
[2022-01-27 00:07] LABS: Magnesium 1.7 mg/dL (1.7-2.3)
[2022-01-27 00:55] LABS: Troponin T (5th) Once 14 ng/L (0-15)
[2022-01-27 00:57] LABS: Magnesium 1.7 mg/dL (1.7-2.3)
--- NOTE | 2022-01-27 02:15 | ECG_ITS ---
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 Measurements Intervals [place] Rate: 99 P: [place]: QRS: -19 QRSD: 117 T: -28 QT: 359 QTc: 461 Interpretive Statements ATRIAL FIBRILLATION WITH ABERRANT CONDUCTION OR VENTRICULAR PREMATURE COMPLEXES MODERATE INTRAVENTRICULAR CONDUCTION DELAY [105+ ms QRS DURATION, 80+ ms Q/S IN V1/V2, NO Q AND 60+ ms R IN I/aVL/V5/V6] NONSPECIFIC ST & T-WAVE ABNORMALITY Compared to ECG 01/26/2022 23:48:51 T-wave abnormality now present Myocardial infarct finding no longer present Electronically Signed On 01-27-2022 17:52:12 CDT by Yanna Carrera M.D. [id number]
[2022-01-27 02:57] LABS: Troponin 5 2HR 15.82 ng/L (0-15)
[2022-01-27 02:58] LABS: Troponin 5 2HR Delta 1.82 ABS# (0-10)
--- NOTE | 2022-01-27 06:15 | ECG_ITS ---
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 Measurements Intervals [place] Rate: 102 P: [place]: QRS: -20 QRSD: 122 T: -11 QT: 352 QTc: 461 Interpretive Statements ATRIAL FIBRILLATION WITH RAPID VENTRICULAR RESPONSE MODERATE INTRAVENTRICULAR CONDUCTION DELAY [105+ ms QRS DURATION, 80+ ms Q/S IN V1/V2, NO Q AND 60+ ms R IN I/aVL/V5/V6] NONSPECIFIC ST & T-WAVE ABNORMALITY Compared to ECG 01/27/2022 01:48:59 Ventricular premature complex(es) no longer present Aberrant conduction of supraventricular beat(s) no longer present T-wave abnormality still present Electronically Signed On 01-27-2022 17:52:49 CDT by Yanna Carrera M.D. [id number]
[2022-01-27 06:54] LABS: Basophils # 0.1 10^3/uL (0.0-0.1); Basophils % 0.4 %; Eosinophils % 0.1 %; Hematocrit 33.6 % (42.0-52.0); Hemoglobin 11.4 g/dL (11.7-16.6); Lymphocytes # 1.4 10^3/uL (0.8-4.8); Lymphocytes % 11.6 %; Mean Corpuscular HGB Conc 33.9 g/dL (30.0-36.0); Mean Corpuscular Hemoglobin 30.8 pg (28.0-34.0); Mean Corpuscular Volume 90.8 fl (80-94); Mean Platelet Volume 10.6 fL (7.4-10.4); Monocytes # 1.4 10^3/uL (0.2-0.9); Monocytes % 11.5 %; Neutrophils # 9.11 10^3/uL (1.8-7.7); Neutrophils % 73.7 %; Nucleated Red Blood Cells % 0 %; Platelet Count 263 10^3/cmm (130-400); Red Cell Distribution Width 12.5 % (12.1-15.1); White Blood Count 12.4 10^3/uL (4.0-10.0)
[2022-01-27 07:02] LABS: Troponin 5 6HR 15.42 ng/L (0-15)
[2022-01-27 07:04] LABS: Troponin 5 6HR Delta 1.42 ng/L (0-12)
[2022-01-27 07:06] LABS: Anion Gap 12.2 (5-19); Blood Urea Nitrogen 11 mg/dL (8-23); Calcium 8.5 mg/dL (8.5-10.5); Carbon Dioxide 27 mmol/L (22-29); Chloride 85 mmol/L (98-107); Glucose 117 mg/dL (65-115); Magnesium 1.7 mg/dL (1.7-2.3); Osmolality Calculated 250 mOsm/kg (285-295); Potassium 4.2 mmol/L (3.5-5.1); Sodium 120 mmol/L (136-145); Thyroid Stimulating Hormone 0.79 uIU/mL (0.27-4.20)
[2022-01-27 07:08] LABS: Creatinine Clr Calc Pharmacy 66.0019
[2022-01-27 07:10] LABS: Cortisol Random 1.86 ug/dL (2.47-19.5)
[2022-01-27] MEDS: albuterol 8 gm MDI 2 PUFF INHALATION ×2 (07:54→21:12)
[2022-01-27] MEDS: atorvastatin 40 mg Tablet 20 MG PO (10:04)
[2022-01-27] MEDS: tamsulosin 0.4 mg Capsule PO (10:07)
[2022-01-27] MEDS: metoprolol tartrate 25 mg Tablet 12.5 MG PO (10:07)
[2022-01-27] MEDS: amlodipine 5 mg Tablet PO (10:08)
[2022-01-27] MEDS: finasteride 5 mg Tablet PO (10:09)
[2022-01-27] MEDS: pantoprazole DR 40 mg Tablet PO ×2 (10:09→16:57)
[2022-01-27] MEDS: docusate sodium 100 mg Capsule PO ×2 (10:09→16:58)
[2022-01-27 12:41] LABS: Sodium 117 mmol/L (136-145)
--- NOTE | 2022-01-27 13:30 | PC.CHAP ---
Pastoral Care Encounter/Spiritual Assessment Type of Contact [] Declined bleaching machine operator visit [] Patient/Family/Request visit [] Outpatient visit [] Follow-up visit [] Physician referral [] Code/Alert [xx] Routine visit [] Staff referral [] Actively dying [] Patient sleeping [] Family support [] [] Out of room [] Palliative care [] [] Receiving care in room [] Pre-surgical visit [] Trauma [] Long length of stay [] ICU visit [] Other: Relational/Emotional Strength [xx] Patient feels connected with others/family/visitors/staff [] Distress [] Loneliness/isolation [] Abandonment Spirituality of Patient [xx] Person of Christine [xx] Attends Advent of their Christine [xx] Believes in Prayer [xx] Reads Bible or Christian materials [] There are Spiritual issues to be addressed Case Investigator Interventions [xx] Prayer [xx] Active listening [xx] Non-anxious presence [] Spiritual/emotional support [] Crisis/trauma care [] Spiritual counseling [] Bereavement support [] Provided bereavement packet [] Provided Bible/devotional materials [] Provided toy/stuffed animal, coloring book to patient or family member [] Provided Communion [] Anointing/[place] [] Salvation [xx] Completed spiritual assessment [] Other: Impact on Illness or Injury [] Angry [] Fearful [] Anxious [] Often cries [] Exhaustion [] Unable to work [] Unable to attend hinduism [] Unable to walk/stand [] Unable to read [] Unable to drive [] Unable to eat/drink [] Unable to sleep [] Unable to be with family [] Patient intubated [] Other: Summary Patient's of 63 years and his sister were present. Patient was upset because doctor told him to stay in hospital one more day when he thought he was being discharged today. He thinks he feels good enough to go home today. Time spent with patient 5 minutes
--- NOTE | 2022-01-27 14:19 | CTR_ITS ---
PROCEDURE INFORMATION: Exam: CT Abdomen And Pelvis Without Contrast Exam date and time: 01/27/2022 6:11 PM Age: 86 years old Clinical indication: Mass, lump, or swelling; Prior surgery; Surgery date: 1-6 months; Patient HX: R flank bruise since gb surg, no known fall or injury; Additional info: Very large R flank bruise, cholecystectomy in last 2 months TECHNIQUE: Imaging protocol: Computed tomography of the abdomen and pelvis without contrast. Sagittal and coronal reformatted images were created and reviewed. Radiation optimization: All CT scans at this facility use at least one of these dose optimization techniques: automated exposure control; mA and/or kV adjustment per patient size (includes targeted exams where dose is matched to clinical indication); or iterative reconstruction. COMPARISON: US abdomen complete* [id number] 03/18/2021 10:32 AM RADIATION DOSE METRICS: Total DLP (mGy-cm): 1604.92 FINDINGS: Limitations: Evaluation of solid organs and vasculature is limited without intravenous contrast. Lungs: There is linear scarring in the right lower lobe. Calcified granulomas in the right lower lobe. Pleural spaces: No pleural effusion. Heart: Visualized portions of the heart are moderately enlarged. Calcification of the aortic valve and mitral valve annulus. Moderate atherosclerotic calcification in the visualized coronary arteries. Liver: Multiple calcified granulomas in the liver. Hypodense focus in the liver that cannot be further characterized on the current examination. This measures 1.9 x 1.3 cm (series 2, image 9). Gallbladder and bile ducts: The patient has had an interval cholecystectomy. No biliary ductal dilatation. Pancreas: The pancreas is unremarkable. No pancreatic ductal dilatation. Spleen: Multiple calcified granulomas in the spleen. Adrenal glands: The right and left adrenal glands are unremarkable. Kidneys and ureters: Multilobulated heterogenous mass in the superior pole of the right kidney has increased in size. This now measures 6.6 x 5.3 x 6.7 cm, previously measured 3.9 x 4.3 x 4.3 cm (series 601, image 55 and series 2, image 33). The mass extends into the right renal pelvis. The left kidney is unremarkable. The right and left ureters are unremarkable. Stomach and bowel: Numerous diverticula in the sigmoid colon. No evidence for diverticulitis. No acute abnormality in the stomach. No acute abnormality in the small bowel. Appendix: Appendix not definitely visualized. No inflammatory changes in the pericecal region however. Intraperitoneal space: No free intraperitoneal air. No ascites. No loculated fluid collections to suggest an abscess. Vasculature: Moderate atherosclerotic changes in the visualized arteries. No evidence for aortic aneurysm. Lymph nodes: Subcarinal and right hilar calcified lymph nodes. No lymphadenopathy. Urinary bladder: Diffuse, mild wall thickening of the bladder with areas of trabeculation of the bladder wall. Reproductive: The prostate gland is markedly enlarged. 2.3 x 1.5 cm hypodense focus with faint peripheral calcification in the left prostate. It is uncertain whether this represents a possible mass or a complex prostatic cyst. Bones/joints: Degenerative changes in the spine, sacroiliac joints, and hips. Prior interspinous fusion from L3 through L5. Old, mild compression deformity of L2. Grade 1 anterolisthesis L4 on L5, likely due to facet degenerative change. Soft tissues: Hyperdense fluid collection consistent with a hematoma in the lateral right transversus abdominus muscle, consistent with a hematoma. This measures 7.2 x 7.3 x 2.8 cm (series 601, image 72 and series 2, image 32). Enlargement of the right lateral abdominal wall musculature suggesting intramuscular hematomas. There is also subcutaneous contusion along the right lateral abdomen. A 2nd hematoma is seen in the lower right rectus abdominus muscle measuring 6.4 x 1.7 x 3.7 cm (series 601, image 49 and series 2, image 69). There is mild contusion around the right lower rectus muscle as well. Evaluation for active bleeding cannot be performed without intravenous contrast. CT/CT abdomen pelvis wo con [id number] IMPRESSION: 1. The patient has had an interval cholecystectomy. Large localized hematoma in the lateral right transversus abdominus muscle with associated findings suggesting more diffuse intramuscular hematomas in the right lateral abdominal wall musculature. There is also subcutaneous contusion along the right lateral abdomen. A 2nd hematoma is seen in the lower right rectus abdominus muscle. There is mild contusion around the right lower rectus muscle as well. Evaluation for active bleeding cannot be performed without intravenous contrast. 2. Increase in size of a right renal neoplasm, the mass extends into the right renal pelvis. Recommend non-emergent MRI without and with contrast or non-emergent CT without and with contrast. MRI is preferred for masses under 1.5 cm, if the patient has no contraindication. 3. Hypodense focus in the liver that cannot be further characterized on the current examination. Possible metastatic focus cannot be ruled out given the right renal neoplasm. Further evaluation with non-emergent liver MRI is recommended, if the patient has no contraindication. (Reference: Vance) 4. The prostate gland is markedly enlarged. Indeterminate hypodense focus with faint peripheral calcification in the left prostate. It is uncertain whether this represents a possible mass or a complex prostatic cyst. Recommend clinical correlation. Further evaluation with non-emergent liver MRI is recommended, if the patient has no contraindication. 5. Diffuse, mild wall thickening of the bladder with areas of trabeculation of the bladder wall. Findings suggest chronic outlet obstruction. 6. Sigmoid diverticulosis. No evidence for diverticulitis. 7. Incidental/nonacute findings are listed in the report. COMMENTS: Consistent with the [place] [employer]'s Incidental Findings Committee white paper (J Am Faizan Radiol 2018): Any incidental renal lesion less than 1 cm or classified as too small to characterize, or any incidental cystic renal lesion characterized as simple-appearing, is likely benign. No follow-up imaging is recommended for these lesions per consensus recommendations based on imaging criteria. REFERENCES: Vance MORIN, et al. Management of Incidental Liver Lesions on CT: A White Paper of the ACR Incidental Findings Committee. J Am Faizan Radiol. 2017;14(11):1432-7468.
--- NOTE | 2022-01-27 14:31 | PM.PN ---
Subjective Subjective: He is feeling slightly better. He is breathing a bit easier. He is not dizzy. Denies headache. A very large bruise was found on his right flank which he does not recall when it may have appeared. His does not remember it being there at home. He has not injured himself in any way he states. He had hit his elbow on the edge of the table but there is no bruise there and his arm is not bothering him. He had his gallbladder removed about 2-3 months ago. Vitals/I&O/Wt Last Vital Signs Temp 97.9 F 01/27/22 10:55 Pulse 113 H 01/27/22 10:55 Resp 16 01/27/22 10:55 BP 130/78 01/27/22 10:55 Pulse Ox 96 01/27/22 10:55 01/26/22 01/27/22 01/27/22 22:59 06:59 14:59 Intake Total 250 / 1250 240 / 1490 840 / 840 Output Total 200 / 200 205 / 405 200 / 200 Balance 50 / 1050 35 / 1085 640 / 640 Weight last 48 hrs Weight 84.005 kg Weight 79.379 kg Weight 79.379 kg Physical Exam Narrative: at bedside Const: COMMON NORMALS: no acute distress and patient oriented x3 HENMT: COMMON NORMALS: oropharynx normal Neck/C-Spine: COMMON NORMALS: no JVD Resp: COMMON NORMALS: normal respiratory effort and clear to auscultation bilaterally AUSCULTATION: clear to auscultation bilaterally Cardio: COMMON NORMALS: no JVD, regular rhythm, S1 normal heart sound present, S2 normal heart sound present and No murmurs present (Cardio) RHYTHM: regular rhythm HEART SOUNDS: S1 normal heart sound present and S2 normal heart sound present GI: COMMON NORMALS: Normal to inspection, nondistended, normoactive bowel sounds present, Soft to palpation and non-tender PALPATION: Yes Soft to palpation OTHER: Large right flank bruise about 20 cm in diameter Extremity: COMMON NORMALS: no joint enlargement and no pedal edema Neuro: COMMON NORMALS: patient oriented x3 and moves all extremities Skin: COMMON NORMALS: no rashes or lesions noted GENERAL SKIN EXAM: no rashes or lesions noted Data : 01/27/22 06:24 01/27/22 17:13 A&P Assessment and plan (1) Hyponatremia: Recheck sodium worse at 117, but does not appear that he had received sodium chloride tablets. Retimed tablets to be given this afternoon and evening, recheck sodium level. Regular diet. Status: Acute (2) Abdominal wall hematoma: Large bruise on the right flank, followed up with CT abdomen pelvis, with noted large localized hematoma in lateral right transversus abdominis muscle with associated findings as to more diffuse intramuscular hematomas in right lateral abdominal wall musculature. Subcutaneous contusion noted in the right lateral abdomen. Second hematoma in lower right rectus abdominis muscle, mild contusion around the right lower rectus muscle as well. Prophylactic Lovenox is withheld. Add SCDs instead. Status: Acute (3) Maxillary sinusitis: Status: Acute (4) Allergic rhinitis: Status: Acute (5) Bronchitis: Status: Acute (6) PAF (paroxysmal atrial fibrillation): Monitor on telemetry Status: Acute (7) Hx of radioactive iodine thyroid ablation: Status: Acute (8) Renal mass: Noted enlargement, will need follow-up. Possible metastatic disease with liver lesion, difficult to characterize on CT. Status: Acute (9) History of permanent cardiac pacemaker placement: Status: Acute Plan 86 year old male with past medical history of hypertension, paroxysmal atrial fibrillation , cardiac pacemaker placement , Hx of radioactive iodine thyroid ablation, Renal mass, came in with chief complaint of shortness of breath , nonproductive cough , runny nose , postnasal drip , headache, going on for about a week , he was seeing his primary care physician for the same problem and was on steroids antibiotics and inhaler. He denies any fever, chills, fatigue, nausea , vomiting , tingling , numbness. Prostate enlargement noted on CT incidentally indeterminate hypodense focus within left prostate with faint peripheral calcification. Uncertain whether this represents possible mass or complex prostatic cyst. Follow-up with urology. #Allergic rhinitis: Continue Flonase #Bronchitis: Continue azithromycin #CODE STATUS: Full code #DVT prophylaxis: On Lovenox Attestations Medical Necessity Statement*: Continue admission for assessment of management of hyponatremia, abdominal wall hematoma. Coding Level of Care Code Acute Installment Dealer for [facility] Diagnoses Hyponatremia E87.1 Maxillary sinusitis J32.0 Allergic rhinitis J30.9 Bronchitis J40 PAF (paroxysmal atrial fibrillation) I48.0 Hx of radioactive iodine thyroid ablation Z92.3 Renal mass N28.89 History of permanent cardiac pacemaker placement Z95.0 Abdominal wall hematoma S30.1XXA
[2022-01-27 14:38] LABS: SARS Covid-2 Antigen Negative (Negative)
[2022-01-27 14:49] LABS: Lipase 34 U/L (13-60)
[2022-01-27] MEDS: sodium chloride 1 gm Tablet 2 GM PO ×2 (15:21→17:00)
[2022-01-27] MEDS: enoxaparin 40 mg/0.4 mL Syringe SUBCUT (16:38)
[2022-01-27] MEDS: azithromycin 500 MG in sodium chloride 0.9% 250 ML 250 MG IV (16:57)
[2022-01-27 18:19] LABS: Sodium 118 mmol/L (136-145)
[2022-01-27] MEDS: fluticasone nasal spray 16gm Btl 1 SPRAY NASAL (21:23)
[2022-01-27 21:38] LABS: Hemoglobin 10.8 g/dL (11.7-16.6)
[2022-01-27 22:08] LABS: Sodium 120 mmol/L (136-145)
[2022-01-28] VITALS (8 sets, daily range): BP systolic 114–156; BP diastolic 62–96; PULSE 80–100; RESP 16–21; TEMP 36.4–36.9; O2SAT 91–97
[2022-01-28 05:38] LABS: Basophils # 0.1 10^3/uL (0.0-0.1); Basophils % 0.4 %; Eosinophils # 0.1 10^3/uL (0.0-0.8); Eosinophils % 0.6 %; Hematocrit 32.1 % (42.0-52.0); Hemoglobin 10.8 g/dL (11.7-16.6); Lymphocytes # 1.6 10^3/uL (0.8-4.8); Lymphocytes % 13.2 %; Mean Corpuscular HGB Conc 33.6 g/dL (30.0-36.0); Mean Corpuscular Hemoglobin 30.5 pg (28.0-34.0); Mean Corpuscular Volume 90.7 fl (80-94); Mean Platelet Volume 10.5 fL (7.4-10.4); Monocytes # 1.8 10^3/uL (0.2-0.9); Monocytes % 14.1 %; Neutrophils # 8.38 10^3/uL (1.8-7.7); Neutrophils % 67.4 %; Nucleated Red Blood Cells % 0 %; Platelet Count 232 10^3/cmm (130-400); Red Blood Count 3.54 10^6/uL (4.1-5.3); Red Cell Distribution Width 12.6 % (12.1-15.1); White Blood Count 12.4 10^3/uL (4.0-10.0)
[2022-01-28 06:15] LABS: Blood Urea Nitrogen 14 mg/dL (8-23); Calcium 8.3 mg/dL (8.5-10.5); Carbon Dioxide 23 mmol/L (22-29); Chloride 86 mmol/L (98-107); Creatinine Clr Calc Pharmacy 66.0019; Glucose 99 mg/dL (65-115); Osmolality Calculated 247 mOsm/kg (285-295)
[2022-01-28 06:58] LABS: Sodium 118 mmol/L (136-145)
[2022-01-28] MEDS: metoprolol tartrate 25 mg Tablet 12.5 MG PO (08:51)
[2022-01-28] MEDS: finasteride 5 mg Tablet PO (08:51)
[2022-01-28] MEDS: docusate sodium 100 mg Capsule PO ×2 (08:53→18:11)
[2022-01-28] MEDS: pantoprazole DR 40 mg Tablet PO ×2 (08:53→18:11)
[2022-01-28] MEDS: atorvastatin 40 mg Tablet 20 MG PO (08:53)
[2022-01-28] MEDS: tamsulosin 0.4 mg Capsule PO (08:53)
[2022-01-28] MEDS: sodium chloride 1 gm Tablet 2 GM PO (08:53)
[2022-01-28] MEDS: amlodipine 5 mg Tablet PO (08:54)
[2022-01-28] MEDS: predniSONE 10 mg Tablet PO ×2 (08:59→18:11)
[2022-01-28] MEDS: benzonatate 100 mg Capsule 200 MG PO ×2 (09:10→21:59)
--- NOTE | 2022-01-28 13:15 | PM.PN ---
Subjective Subjective: Reports subjectively he is feeling better. He denies chest pain or pressure. Denies lightheadedness or presyncope. States breathing is improving. He is coughing and states that quite bothersome bout of cough last night. States that Tessalon Perles did help. Vitals/I&O/Wt Last Vital Signs Temp 98.2 F 01/28/22 11:13 Pulse 88 01/28/22 11:13 Resp 16 01/28/22 11:13 BP 116/76 01/28/22 11:13 Pulse Ox 96 01/28/22 11:13 01/27/22 01/28/22 01/28/22 22:59 06:59 14:59 Intake Total 542 / 1382 Balance 542 / 1182 Weight last 48 hrs Weight 84.005 kg Weight 79.379 kg Physical Exam Const: COMMON NORMALS: no acute distress and patient oriented x3 HENMT: COMMON NORMALS: oropharynx normal Neck/C-Spine: COMMON NORMALS: no JVD Resp: COMMON NORMALS: normal respiratory effort and clear to auscultation bilaterally AUSCULTATION: clear to auscultation bilaterally Cardio: COMMON NORMALS: no JVD, regular rhythm, S1 normal heart sound present, S2 normal heart sound present and No murmurs present (Cardio) RHYTHM: regular rhythm HEART SOUNDS: S1 normal heart sound present and S2 normal heart sound present GI: COMMON NORMALS: Normal to inspection, nondistended, normoactive bowel sounds present, Soft to palpation and non-tender PALPATION: Yes Soft to palpation OTHER: Fainter appearing bruise, but overlying large portion of the right side abdominal wall Extremity: COMMON NORMALS: no joint enlargement and no pedal edema Neuro: COMMON NORMALS: patient oriented x3 and moves all extremities Skin: COMMON NORMALS: no rashes or lesions noted GENERAL SKIN EXAM: no rashes or lesions noted Data : 01/28/22 05:00 01/28/22 05:00 A&P Assessment and plan (1) Hyponatremia: Urine sodium is 46. Serum cortisol noted low history, both are to be suppressed due to recent Solu-Medrol course. However, with euvolemic hyponatremia, likely improvement sodium, possible renal sufficiency, discussed with him starting prednisone. Continue sotalol for now, but if not improving discussed with him also consideration of 3% sodium chloride infusion. Regular diet. Status: Acute (2) Abdominal wall hematoma: Discussed with him hematoma findings of possible contusion on CT. He denies any recent fall, does not recall trauma. Hemoglobin was rechecked last night and this morning, 10.8 and 10.8 respectively. Anticipate bleeding is slowing. Hematoma should resolve. We will recheck again blood counts. Continue to withhold Lovenox. SCDs only. Large bruise on the right flank, followed up with CT abdomen pelvis, with noted large localized hematoma in lateral right transversus abdominis muscle with associated findings as to more diffuse intramuscular hematomas in right lateral abdominal wall musculature. Subcutaneous contusion noted in the right lateral abdomen. Second hematoma in lower right rectus abdominis muscle, mild contusion around the right lower rectus muscle as well. Status: Acute (3) Bronchitis: After-negative, strep PCR. Continue azithromycin. Antitussives, albuterol as needed, flutter valve. Status: Acute (4) Maxillary sinusitis: Status: Acute (5) Allergic rhinitis: Status: Acute (6) PAF (paroxysmal atrial fibrillation): Monitor on telemetry Status: Acute (7) Hx of radioactive iodine thyroid ablation: Status: Acute (8) Renal mass: Noted enlargement, will need follow-up. Possible metastatic disease with liver lesion, difficult to characterize on CT. Status: Acute (9) History of permanent cardiac pacemaker placement: Status: Acute Plan 86 year old male with past medical history of hypertension, paroxysmal atrial fibrillation , cardiac pacemaker placement , Hx of radioactive iodine thyroid ablation, Renal mass, came in with chief complaint of shortness of breath , nonproductive cough , runny nose , postnasal drip , headache, going on for about a week , he was seeing his primary care physician for the same problem and was on steroids antibiotics and inhaler. He denies any fever, chills, fatigue, nausea , vomiting , tingling , numbness. Prostate enlargement noted on CT incidentally indeterminate hypodense focus within left prostate with faint peripheral calcification. Uncertain whether this represents possible mass or complex prostatic cyst. Follow-up with urology. #Allergic rhinitis: Continue Flonase #CODE STATUS: Full code Attestations Medical Necessity Statement*: Patient admission for management of hyponatremia, acute bronchitis, monitoring due to abdominal wall hematoma. Coding Level of Care Code Acute Social Scientist for [facility] Diagnoses Hyponatremia E87.1 Abdominal wall hematoma S30.1XXA Maxillary sinusitis J32.0 Allergic rhinitis J30.9 Bronchitis J40 PAF (paroxysmal atrial fibrillation) I48.0 Hx of radioactive iodine thyroid ablation Z92.3 Renal mass N28.89 History of permanent cardiac pacemaker placement Z95.0
[2022-01-28 14:25] LABS: Sodium 117 mmol/L (136-145)
[2022-01-28] MEDS: azithromycin 500 MG in sodium chloride 0.9% 250 ML 250 MG IV (18:12)
[2022-01-28 18:49] LABS: Sodium 117 mmol/L (136-145)
[2022-01-28] MEDS: albuterol 8 gm MDI 2 PUFF INHALATION (19:52)
[2022-01-28] MEDS: sodium chloride 3% 500 ML 30 ML IV (21:53)
[2022-01-28 22:48] LABS: Sodium 117 mmol/L (136-145)
[2022-01-29] VITALS (7 sets, daily range): BP systolic 103–135; BP diastolic 66–78; PULSE 64–120; RESP 15–118; TEMP 36.5–36.9; O2SAT 93–98
[2022-01-29 05:05] LABS: Basophils % 0.3 %; Eosinophils % 0.2 %; Hematocrit 31.3 % (42.0-52.0); Hemoglobin 10.3 g/dL (11.7-16.6); Lymphocytes # 1.4 10^3/uL (0.8-4.8); Lymphocytes % 10.7 %; Mean Corpuscular HGB Conc 32.9 g/dL (30.0-36.0); Mean Corpuscular Hemoglobin 31.1 pg (28.0-34.0); Mean Corpuscular Volume 94.6 fl (80-94); Mean Platelet Volume 10.2 fL (7.4-10.4); Monocytes # 1.5 10^3/uL (0.2-0.9); Monocytes % 11.8 %; Neutrophils # 9.19 10^3/uL (1.8-7.7); Nucleated Red Blood Cells % 0 %; Platelet Count 251 10^3/cmm (130-400); Red Blood Count 3.31 10^6/uL (4.1-5.3); Red Cell Distribution Width 12.8 % (12.1-15.1); White Blood Count 12.9 10^3/uL (4.0-10.0)
[2022-01-29 05:33] LABS: Anion Gap 9.9 (5-19); Blood Urea Nitrogen 15 mg/dL (8-23); Calcium 8.2 mg/dL (8.5-10.5); Carbon Dioxide 24 mmol/L (22-29); Chloride 94 mmol/L (98-107); Glucose 118 mg/dL (65-115); Osmolality Calculated 260 mOsm/kg (285-295); Potassium 3.9 mmol/L (3.5-5.1); Sodium 124 mmol/L (136-145)
[2022-01-29 05:42] LABS: Slide Review Slide Review Perform
[2022-01-29 05:47] LABS: Creatinine Clr Calc Pharmacy 66.0019
[2022-01-29] MEDS: atorvastatin 40 mg Tablet 20 MG PO (08:01)
[2022-01-29] MEDS: finasteride 5 mg Tablet PO (08:01)
[2022-01-29] MEDS: benzonatate 100 mg Capsule 200 MG PO ×2 (08:01→15:54)
[2022-01-29] MEDS: sodium chloride 1 gm Tablet 2 GM PO (08:01)
[2022-01-29] MEDS: predniSONE 10 mg Tablet PO ×2 (08:01→17:36)
[2022-01-29] MEDS: amlodipine 5 mg Tablet PO (08:01)
[2022-01-29] MEDS: docusate sodium 100 mg Capsule PO ×2 (08:01→17:36)
[2022-01-29] MEDS: pantoprazole DR 40 mg Tablet PO ×2 (08:02→17:36)
[2022-01-29] MEDS: tamsulosin 0.4 mg Capsule PO (08:02)
[2022-01-29] MEDS: metoprolol tartrate 25 mg Tablet 12.5 MG PO (08:02)
[2022-01-29] MEDS: albuterol 8 gm MDI 2 PUFF INHALATION ×2 (08:11→20:49)
[2022-01-29 08:27] LABS: Adenovirus Not Detected (NOT DETECT); Chlamydia Pneumoniae Not Detected (NOT DETECT); Coronavirus 229E,HKU1,NL63,OC4 Not Detected (NOT DETECT); Human Metapneumovirus Not Detected (NOT DETECT); Human Rhinovirus/Enterovirus Not Detected (NOT DETECT); Influenza A Not Detected (NOT DETECT); Influenza A H1 Not Detected (NOT DETECT); Influenza A H1-2009 Not Detected (NOT DETECT); Influenza A H3 Not Detected (NOT DETECT); Influenza B Not Detected (NOT DETECT); Mycoplasma Pneumoniae Not Detected (NOT DETECT); Parainfluenza Virus Type 1 Not Detected (NOT DETECT); Parainfluenza Virus Type 2 Not Detected (NOT DETECT); Parainfluenza Virus Type 3 Not Detected (NOT DETECT); Parainfluenza Virus Type 4 Not Detected (NOT DETECT); Respiratory Syncytial Virus A Not Detected (NOT DETECT); Respiratory Syncytial Virus B Not Detected (NOT DETECT); SARS-COV-2 Not Detected (NOT DETECT)
--- NOTE | 2022-01-29 09:27 | PC.SOCIAL ---
IMM Update Pg. 2 of IMM updated and reviewed with patient, who verbalized understanding. Copy provided.
[2022-01-29] MEDS: fluticasone nasal spray 16gm Btl 1 SPRAY NASAL (11:24)
[2022-01-29 13:20] LABS: Sodium 125 mmol/L (136-145)
--- NOTE | 2022-01-29 14:34 | P.PN_ITS ---
Subjective Subjective: He is doing slightly better. Reports respiratory secretions are getting slightly thinner. Last night he lost an IV, could not sleep due to another IV having to be obtained. Discussed with him and his regarding increase in sodium. Denies abdominal or abdominal wall pain. His states his friend had said that he may have bumped himself in the workshop, although he does not remember that. Vitals/I&O/Wt Last Vital Signs Temp 98.0 F 01/29/22 12:00 Pulse 98 01/29/22 12:00 Resp 18 01/29/22 12:00 BP 103/71 01/29/22 12:00 Pulse Ox 95 01/29/22 12:00 01/28/22 01/29/22 01/29/22 22:59 06:59 14:59 Intake Total 720 / 720 517.5 / 1237.5 480 / 480 Output Total 300 / 300 250 / 250 Balance 720 / 720 217.5 / 937.5 230 / 230 Physical Exam Narrative: at bedside Const: COMMON NORMALS: no acute distress and patient oriented x3 HENMT: COMMON NORMALS: oropharynx normal Neck/C-Spine: COMMON NORMALS: no JVD Resp: COMMON NORMALS: normal respiratory effort and clear to auscultation bilaterally AUSCULTATION: clear to auscultation bilaterally Cardio: COMMON NORMALS: no JVD, regular rhythm, S1 normal heart sound present, S2 normal heart sound present and No murmurs present (Cardio) RHYTHM: regular rhythm HEART SOUNDS: S1 normal heart sound present and S2 normal heart sound present GI: COMMON NORMALS: Normal to inspection, nondistended, normoactive bowel sounds present, Soft to palpation and non-tender PALPATION: Yes Soft to palpation OTHER: Large bruise of right side abdominal wall, flank, wrapping anteriorly towards the umbilicus Extremity: COMMON NORMALS: no joint enlargement and no pedal edema Neuro: COMMON NORMALS: patient oriented x3 and moves all extremities Skin: COMMON NORMALS: no rashes or lesions noted GENERAL SKIN EXAM: no rashes or lesions noted Data : 01/29/22 04:45 01/29/22 12:25 A&P Assessment and plan (1) Hyponatremia: Transiently on 3% sodium. Sodium improved up to 224, recheck 125. Hold additional 2% sodium for now, recheck sodium in the morning. Consider additiona l brief infusion of 3% saline if not continue to gradually improve. Sodium chloride tablets held for now. Regular diet. Continue prednisone for now with possible adrenal insufficiency based on serum cortisol, improving sodium. If continues to improve, taper. Urine sodium is 46. Serum cortisol noted low history, both are to be suppressed due to recent Solu-Medrol course. However, with euvolemic hyponatremia, likely improvement sodium, possible renal sufficiency, discussed with him starting prednisone. Status: Acute (2) Abdominal wall hematoma: Large ecchymosis of right side abdominal wall, wrapping towards umbilicus. Tomorrow with possible touch base with Dr. Cordova regarding abdominal wall hematoma as well, although probably less likely related to his cholecystectomy which was done in the beginning of October. He does not remember any trauma. His states his friend had said that perhaps he may have bumped himself in the workshop. Some signs of contusion on CT. Lovenox on hold as likely contributed also to the hematoma. Recheck hemoglobin. Monitor for development of fever. So far steady blood cou nt and afebrile. SCD only for DVT prophylaxis. CT abdomen pelvis with noted large localized hematoma in lateral right transversus abdominis muscle with associated findings as to more diffuse intramu scular hematomas in right lateral abdominal wall musculature. Subcutaneous contusion noted in the right lateral abdomen. Second hematoma in lower right rectus abdominis muscle, mild contusion around the right lower rectus muscle as well. Status: Acute (3) Bronchitis: Showing some gradual improvement. Producing phlegm. Add Mucinex. Encouraged flutter valve. After-negative, strep PCR. Continue azithromycin. Was also started on prednisone as above. Antitussives, albuterol as needed, flutter valve. Status: Acute (4) Maxillary sinusitis: Status: Acute (5) Allergic rhinitis: Status: Acute (6) PAF (paroxysmal atrial fibrillation): Monitor on telemetry Status: Acute (7) Hx of radioactive iodine thyroid ablation: Status: Acute (8) Renal mass: Previously followed by urology, should follow up with them regarding noted enlargement. Possible metastatic disease with liver lesion, difficult to characterize on CT. Status: Acute (9) History of permanent cardiac pacemaker placement: Status: Acute Plan Prostate enlargement noted on CT incidentally indeterminate hypodense focus within left prostate with faint peripheral calcification. Uncertain whether this represents possible mass or complex prostatic cyst. Follow-up with ur ology. #Allergic rhinitis: Continue Flonase #CODE STATUS: Full code 86 year old male with past medical history of hypertension, paroxysmal atrial fibrillation , cardiac pacemaker placement , Hx of radioactive iodine thyroid ablation, Renal mass, came in with chief complaint of shortness of breath , nonproductive cough , runny nose , postnasal drip , headache, going on for about a week , he was seeing his primary care physician for the same problem and was on steroids antibiotics and inhaler. He denies any fever, chills, fatigue, nausea , vomiting , tingling , numbness. Attestations Medical Necessity Statement*: Continue admission for assessment management of hyponatremia, abdominal wall hematoma. Coding Level of Care Code Acute World Designer for [facility] Diagnoses Hyponatremia E87.1 Abdominal wall hematoma S30.1XXA Bronchitis J40 Maxillary sinusitis J32.0 Allergic rhinitis J30.9 PAF (paroxysmal atrial fibrillation) I48.0 Hx of radioactive iodine thyroid ablation Z92.3 Renal mass N28.89 History of permanent cardiac pacemaker placement Z95.0
[2022-01-29] MEDS: guaiFENesin 600 mg Tablet 1200 MG PO (17:36)
[2022-01-29] MEDS: azithromycin 500 MG in sodium chloride 0.9% 250 ML 250 MG IV (17:36)
[2022-01-29 23:55] LABS: INR 1.01 (0.8-1.2)
[2022-01-29 23:56] LABS: Partial Thromboplastin Time 26.7 SECONDS (23.9-36.7)
[2022-01-29 23:57] LABS: Fibrinogen 277 mg/dL (174-498)
[2022-01-30] VITALS (9 sets, daily range): BP systolic 114–149; BP diastolic 65–94; PULSE 76–109; RESP 16–18; TEMP 36.3–36.8; O2SAT 95–98
[2022-01-30 06:21] LABS: Hematocrit 31.8 % (42.0-52.0); Hemoglobin 10.1 g/dL (11.7-16.6); Mean Corpuscular HGB Conc 31.8 g/dL (30.0-36.0); Mean Corpuscular Hemoglobin 30.9 pg (28.0-34.0); Mean Corpuscular Volume 97.2 fl (80-94); Mean Platelet Volume 10.2 fL (7.4-10.4); Platelet Count 216 10^3/cmm (130-400); Red Blood Count 3.27 10^6/uL (4.1-5.3); Red Cell Distribution Width 13.2 % (12.1-15.1); White Blood Count 13.3 10^3/uL (4.0-10.0)
[2022-01-30 06:31] LABS: Alanine Aminotransferase 17 U/L (0-41); Albumin Level 2.9 g/dL (3.5-5.2); Alkaline Phosphatase 65 IU/L (40-130); Aspartate Amino Transferase 23 U/L (0-40); Blood Urea Nitrogen 14 mg/dL (8-23); Calcium 8.1 mg/dL (8.5-10.5); Carbon Dioxide 26 mmol/L (22-29); Chloride 95 mmol/L (98-107); Creatinine Clr Calc Pharmacy 66.0019; Globulin 2.6 g/dL (1.3-4.6); Glucose 108 mg/dL (65-115); Osmolality Calculated 267 mOsm/kg (285-295); Sodium 128 mmol/L (136-145); Total Bilirubin 0.7 mg/dL (0.15-1.2); Total Protein 5.5 g/dL (6.6-8.7)
[2022-01-30 06:59] LABS: Slide Review Slide Review Perform
[2022-01-30 07:02] LABS: Absolute Eosinophils 0.1 10^3/cmm (0.0-0.7); Absolute Segmented Neutrophil 9.6 10/cmm (1.6-7.1); Band Neutrophils Absolute 0.4 10^3/cmm (0.0-1.2); Eosinophils 1 %; Lymphocytes 7 %; Lymphocytes Absolute 1.1 10^3/cmm (1.2-3.4); Monocytes Absolute 1.6 10^3/cmm (0.1-0.6); Segmented Neutrophils 72 %; Total Cells Counted 100 (0-100)
[2022-01-30 07:03] LABS: Platelet Estimate Normal (Normal); Poikilocytosis 1+
[2022-01-30] MEDS: docusate sodium 100 mg Capsule PO ×2 (08:26→17:19)
[2022-01-30] MEDS: guaiFENesin 600 mg Tablet 1200 MG PO ×2 (08:26→17:19)
[2022-01-30] MEDS: metoprolol tartrate 25 mg Tablet 12.5 MG PO (08:26)
[2022-01-30] MEDS: tamsulosin 0.4 mg Capsule PO (08:26)
[2022-01-30] MEDS: amlodipine 5 mg Tablet PO (08:26)
[2022-01-30] MEDS: finasteride 5 mg Tablet PO (08:26)
[2022-01-30] MEDS: benzonatate 100 mg Capsule 200 MG PO ×2 (08:26→17:19)
[2022-01-30] MEDS: pantoprazole DR 40 mg Tablet PO ×2 (08:27→17:20)
[2022-01-30] MEDS: predniSONE 10 mg Tablet PO ×2 (08:27→17:20)
[2022-01-30] MEDS: atorvastatin 40 mg Tablet 20 MG PO (08:27)
[2022-01-30] MEDS: albuterol 8 gm MDI 2 PUFF INHALATION ×2 (09:15→20:05)
--- NOTE | 2022-01-30 13:45 | P.PN_ITS ---
Subjective Subjective: Hematoma has continued to expand. No increase in pain. In talking with patient, his and his sister it has been pointed out to him by an acquaintance that he did hit his back on something in the workshop a couple of days prior to admission and had been complaining of pain secondary to this. He had some redness on the right flank area and discomfort and then developed some bruising that was present prior to admission and prior to administration of anticoagulation here. Has some increase in pain in the lower abdomen that is mild. Hemoglobin about the same today. Sputum is thinner, cough is not as bad. Flutter device is working. Vitals/I&O/Wt Last Vital Signs Temp 97.4 F L 01/30/22 11:55 Pulse 85 01/30/22 11:55 Resp 18 01/30/22 11:55 BP 114/80 01/30/22 11:55 Pulse Ox 96 01/30/22 11:55 01/29/22 01/30/22 01/30/22 22:59 06:59 14:59 Intake Total 250 / 730 480 / 480 Balance 250 / 480 480 / 480 Physical Exam Narrative: Constitutional: Awake and alert, cooperative HEENT: Normocephalic, moist mucous membranes Respiratory: Clear to auscultation bilaterally presently without any rales rhonchi or wheezes noted Cardiovascular: Regular rhythm Abdomen: Soft, extensive hematoma noted going from periumbilical and substernal area around to the right flank and extending to the back. Reaches from above the umbilicus to the groin. Extension of the hematoma has been marked daily and has extended an additional few inches from prior with some induration in the lower parts of the pannus today although not tender to palpation. Bowel sounds are positive. Extremities: No pitting edema Neuro: Speech clear, face symmetric, normal gait Other: Normal affect Data : 01/30/22 05:39 01/30/22 05:39 A&P Assessment and plan (1) Hyponatremia: Clinically euvolemic at presentation although has had evidence of significant bruising become apparent since then Received short treatment with 3% sodium and oral salt tablets Low random cortisol for which he was started on prednisone Status: Acute (2) Abdominal wall hematoma: Appears to be secondary to bumping himself in his workshop and exacerbated by Lovenox, H&H has been stable but is dropped from admission Should be noted that patient had surgery for his gallbladder in October but I am not sure that that would be a contributing factor this far out Not having increasing pain Status: Acute Qualifiers: Encounter type: initial encounter Qualified Code(s): S30.1XXA - Contusion of abdominal wall, initial encounter (3) Acute blood loss anemia: Slow downward trend, at presentation 12.5 Status: Acute (4) Bronchitis: Present on admission and secondary to sinusitis and/or allergic rhinitis that have been diagnosed in the outpatient setting and for which she had been started on treatment Presenting symptoms this hospital stay where shortness of breath persistent nonproductive cough and drainage Status: Acute (5) Renal mass: Will need outpatient follow-up with urology Status: Chronic (6) PAF (paroxysmal atrial fibrillation): In sinus rhythm this hospital stay Status: Chronic (7) History of permanent cardiac pacemaker placement: Status: Chronic (8) Hypertension: Status: Chronic Qualifiers: Hypertension type: primary hypertension Qualified Code(s): I10 - Essential (primary) hypertension (9) Hyperlipidemia: Status: Chronic Qualifiers: Hyperlipidemia type: mixed hyperlipidemia Qualified Code(s): E78.2 - Mixed hyperlipidemia (10) Hx of radioactive iodine thyroid ablation: Status: Chronic (11) BPH loc w urin obs/LUTS: CT imaging with indeterminate hypodense focus within left prostate with faint peripheral calcification. Uncertain whether this represents possible mass or complex prostatic cyst. Follow-up with urology recommended outpatient. Status: Chronic Plan Persistent leukocytosis, may be in part due to steroids Continue to hold Lovenox Repeat CT imaging in the morning Consider surgical consultation if has continued expansion of hematomas and for outpatient follow-up of significant hematomas, had seen Dr. Cordova in October for gallbladder issues Nursing has marked again the expansion of the abdominal wall hematoma Serial H&H Currently on prednisone due to low cortisol level noted in work-up for hyponatremia Will change to oral azithromycin Continue Flonase, fluticasone, guaifenesin and steroids Continue flutter device which does seem to be helping Add nasal saline Continue home metoprolol, amlodipine Off of home lisinopril presently Continue home statin therapy Continue home finasteride and Flomax On PPI twice daily at home and here SCDs for DVT prophylaxis Upon discharge recommend follow-up with Dr. Valenzuela to evaluate renal mass and prostatic density noted on imaging Supportive care otherwise Findings, plans and concerns were discussed with patient, his and his sister all of whom were given an opportunity to ask questions Full code Attestations Medical Necessity Statement*: Requires ongoing inpatient stay for continued monitoring of expanding hematoma in the abdominal wall and abdominal musculature with continued downward trend in hemoglobin though not requiring transfusion presently. Has other issues as described. Once he has been demonstrated that he is not having ongoing expansion of hematoma and maintaining stable H&H anticipate discharge with close outpatient follow-up. Coding Level of Care Code Acute Radiology Ct Technologist for [facility] Diagnoses Hyponatremia E87.1 Abdominal wall hematoma S30.1XXA Encounter type: initial encounter Bronchitis J40 PAF (paroxysmal atrial fibrillation) I48.0 Hx of radioactive iodine thyroid ablation Z92.3 Renal mass N28.89 History of permanent cardiac pacemaker placement Z95.0 Hypertension I10 Hypertension type: primary hypertension Hyperlipidemia E78.2 Hyperlipidemia type: mixed hyperlipidemia BPH loc w urin obs/LUTS N40.1 Acute blood loss anemia D62
[2022-01-30 14:48] LABS: Osmolality Serum 251 mOsm/kg (278-305)
[2022-01-30 14:48] LABS: Osmolality Urine 574 mOsm/kg (50-1200)
[2022-01-30] MEDS: azithromycin 500 MG in sodium chloride 0.9% 250 ML 250 MG IV (17:19)
[2022-01-31] VITALS (7 sets, daily range): BP systolic 112–147; BP diastolic 61–80; PULSE 87–111; RESP 13–18; TEMP 36.6–37.1; O2SAT 91–95
--- NOTE | 2022-01-31 | XR_ITS ---
WS: [id number] Cervical spine one view. HISTORY: Mucous build-up. Only a single AP view of the cervical spine has been submitted. This is more soft tissue technique th en bone technique. Air is noted within the pharynx. Severe degenerative disc space narrowing and cerv ical osteophytes. Calcification is noted within the aortic arch. XR/XR cervical spine 1Vport [id number] IMPRESSION: Extremely limited evaluation of the cervical region. 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
[2022-01-31] MEDS: benzonatate 100 mg Capsule 200 MG PO ×4 (00:10→21:15)
[2022-01-31 05:48] LABS: Basophils # 0.1 10^3/uL (0.0-0.1); Basophils % 0.4 %; Eosinophils # 0.1 10^3/uL (0.0-0.8); Eosinophils % 0.7 %; Hemoglobin 10.6 g/dL (11.7-16.6); Lymphocytes # 2.4 10^3/uL (0.8-4.8); Lymphocytes % 17.1 %; Mean Corpuscular HGB Conc 33.1 g/dL (30.0-36.0); Mean Corpuscular Hemoglobin 30.8 pg (28.0-34.0); Mean Platelet Volume 10.2 fL (7.4-10.4); Monocytes # 1.5 10^3/uL (0.2-0.9); Monocytes % 10.6 %; Neutrophils # 9.37 10^3/uL (1.8-7.7); Neutrophils % 66.6 %; Nucleated Red Blood Cells % 0 %; Platelet Count 224 10^3/cmm (130-400); Red Blood Count 3.44 10^6/uL (4.1-5.3); Red Cell Distribution Width 13.2 % (12.1-15.1); White Blood Count 14.1 10^3/uL (4.0-10.0)
[2022-01-31 06:10] LABS: Blood Urea Nitrogen 13 mg/dL (8-23); Calcium 8.6 mg/dL (8.5-10.5); Carbon Dioxide 26 mmol/L (22-29); Chloride 90 mmol/L (98-107); Creatinine Clr Calc Pharmacy 66.0019; Glucose 94 mg/dL (65-115); Magnesium 1.7 mg/dL (1.7-2.3); Osmolality Calculated 256 mOsm/kg (285-295); Sodium 123 mmol/L (136-145); Uric Acid 2.2 mg/dL (3.4-7.0)
[2022-01-31 06:13] LABS: Anion Gap 11.1 (5-19); Potassium 4.1 mmol/L (3.5-5.1)
--- NOTE | 2022-01-31 07:00 | CT_ITS ---
WS: [id number] CT ABDOMEN AND PELVIS WITH AND WITHOUT CONTRAST HISTORY: follow up of abd wall/rectus sheath hematomas, expanding TECHNIQUE: Unenhanced 5 mm axial imaging first performed through the abdomen. Post contrast imaging t hrough the abdomen and pelvis. Oral contrast has not been provided. Sagittal and coronal reformats a re submitted. All CT scans at [facility] use at least one of these dose optimization techniqu es: automated exposure control; mA and/or kV adjustment per patient size (includes targeted exams whe re dose is matched to clinical indication); or iterative reconstruction. CONTRAST: Omnipaque 300; 95 mL IV. DLP: 4402.3 mGy.cm COMPARISON: 01/27/2022, 07/23/2012 Mild pleural thickening at the RIGHT lung base. Chronic emphysematous changes at the lung bases with subsegmental atelectasis. Heart is moderately enlarged. Coronary artery calcifications. No pericardia l effusion. There is a small hiatal hernia. Liver is normal size. There is scattered granulomata. Hyperintense enhancing lesion noted in the supe rior RIGHT lobe of the liver towards the diaphragm measures 14 x 12 mm. Consistent with a hemangioma with only minimal increase in size since 07/23/2012. There is an additional stable low-attenuation nod ule measuring 10 mm in the posterior RIGHT lobe also stable and probably a small cyst. Portal vein is patent. No bile duct dilatation. Gallbladder has been removed. Normal size spleen with granulomata. Normal size pancreas. No bile duct dilatation. No adrenal mass. Abdominal aorta: Moderate atherosclerotic plaque throughout the aorta. No aneurysm. Small amount of c alcification at the origin of celiac axis and SMA. No thrombus or occlusion. Heavy calcification at t he origin of the renal arteries. Slightly greater calcific deposition involving the origin of the LEF T renal artery. There is still enhancement within the renal arteries. RIGHT kidney: No RIGHT renal mass. There is a lobulated variable enhancing heterogeneous mass involvi ng the RIGHT kidney. Mass involves the superior and mid posterior lateral kidney with a lobulated enh ancing contour and central necrosis. Mass extends over length of 6.2 cm x 6.7 x 5.1 cm. Mass is exten ding into the renal pelvis causing bulging of the normal contour of the kidney. This mass was present in 2011 but has undergone significant increase in size. No thrombus identified in the renal vein. No renal obstruction. LEFT kidney: Mild perinephric stranding around the LEFT kidney. 13 mm cortical cyst upper pole. No ob struction. No GI tract obstruction. There are numerous diverticula in the sigmoid colon. The appendix is been re moved. Urinary bladder is moderately well distended. Marked enlargement of the prostate gland. Prostate ebonie ures 6.4 x 6.3 cm and extends over length of 7.4 cm. There is significant encroachment into the urina ry bladder. No adjacent lymph nodes or adenopathy. Again noted is some mild soft tissue stranding in the anterior and RIGHT lateral abdominal wall. Intr amuscular hematoma begins at the level of the lower RIGHT rib cage and there is variable density with in the intercostal muscles in the muscles of the lateral thorax and abdominal wall. There is variable density but no area of active extravasation or bleeding. Since the prior examination there has been improvement in the extent of the hematoma in the fluid. Mild asymmetry of the inferior RIGHT rectus a bdominis is very similar. There is no evidence for active extravasation. No acute fractures are identified. Postoperative changes are noted in the lumbar spine. CT/CT abdomen pelvis wo/w [id number] IMPRESSION: 1. No increase in size or progression of the recently described hematomas in t he RIGHT transversus abdominis muscles and the RIGHT rectus sheath. Hematomas a re decreasing in size and there is no active extravasation. 2. Large RIGHT renal mass consistent with a renal carcinoma now extends into t he renal pelvis and has significantly increased in size since 2012. Mass measur es 6.2 x 6.7 x 5.1 cm. 3. Markedly enlarged prostate gland and bladder. 4. Long-term stability hepatic hemangioma and low-attenuation nodule which is probably a cyst. 5. Moderate cardiomegaly. 6. Prior cholecystectomy. 7. No fracture. 8. Heavy calcification at the origin of the renal arteries bilaterally. There is normal enhancement of the kidneys but there is probably greater than 50% alfredito nosis of the renal arteries.
[2022-01-31] MEDS: iohexol 300 mg/mL 100 mL Btl IV (08:20)
[2022-01-31] MEDS: albuterol 8 gm MDI 2 PUFF INHALATION ×2 (08:56→20:47)
[2022-01-31] MEDS: atorvastatin 40 mg Tablet 20 MG PO (09:02)
[2022-01-31] MEDS: metoprolol tartrate 25 mg Tablet 12.5 MG PO (09:03)
[2022-01-31] MEDS: predniSONE 10 mg Tablet PO ×2 (09:03→16:59)
[2022-01-31] MEDS: tamsulosin 0.4 mg Capsule PO (09:03)
[2022-01-31] MEDS: guaiFENesin 600 mg Tablet 1200 MG PO ×2 (09:03→16:59)
[2022-01-31] MEDS: amlodipine 5 mg Tablet PO (09:03)
[2022-01-31] MEDS: azithromycin 250 mg Tablet 500 MG PO (09:03)
[2022-01-31] MEDS: pantoprazole DR 40 mg Tablet PO ×2 (09:03→16:59)
[2022-01-31] MEDS: finasteride 5 mg Tablet PO (09:03)
[2022-01-31] MEDS: fluticasone nasal spray 16gm Btl 1 SPRAY NASAL (09:04)
[2022-01-31] MEDS: docusate sodium 100 mg Capsule PO (09:04)
--- NOTE | 2022-01-31 11:49 | PC.SOCIAL ---
IMM update IMM updated with patient. Copy Pg 2 provided. Verbalized an understanding. Initialled, dated, timed, and placed in chart.
--- NOTE | 2022-01-31 13:32 | P.PN_ITS ---
Subjective Subjective: Doing better. Still has rt sided abdominal hematoma. Denies SOB, cough, pain Vitals/I&O/Wt Last Vital Signs Temp 98.7 F 01/31/22 08:00 Pulse 96 01/31/22 11:52 Resp 13 01/31/22 11:52 BP 112/74 01/31/22 11:52 Pulse Ox 92 01/31/22 11:52 01/30/22 01/31/22 01/31/22 22:59 06:59 14:59 Intake Total 490 / 1210 Balance 490 / 1210 Physical Exam Narrative: Constitutional: Awake and alert, cooperative HEENT: Normocephalic, moist mucous membranes Respiratory: Clear to auscultation bilaterally presently without any rales rhonchi or wheezes noted Cardiovascular: Regular rhythm Abdomen: Soft, extensive hematoma noted going from periumbilical and substernal area around to the right flank and extending to the back.? Reaches from above the umbilicus to the groin.? Extension of the hematoma has been marked daily and has extended an additional few inches from prior with some induration in the lower parts of the pannus today although not tender to palpation.? Bowel sounds are positive. Extremities: No pitting edema Neuro: Speech clear, face symmetric, normal gait Other: Normal affect Data : 01/31/22 05:32 01/31/22 05:32 Other data: CT ABDOMEN AND PELVIS WITH AND WITHOUT CONTRAST HISTORY: follow up of abd wall/rectus sheath hematomas, expanding TECHNIQUE: Unenhanced 5 mm axial imaging first performed through the abdomen. Post contrast imaging through the abdomen and pelvis.? Oral contrast has not been provided. Sagittal and coronal reformats are submitted.? [facility] scans at [facility] use at least one of these dose optimization techniques: automated exposure control; mA and/or kV adjustment per patient size (includes targeted exams where dose is matched to clinical indication); or iterative reconstruction. CONTRAST: Omnipaque 300; 95 mL IV. DLP: 4402.3 mGy.cm COMPARISON: 01/27/2022, 07/23/2012 Mild pleural thickening at the RIGHT lung base. Chronic emphysematous changes at the lung bases with subsegmental atelectasis. Heart is moderately enlarged. Coronary artery calcifications. No pericardial effusion. There is a small hiatal hernia. Liver is normal size. There is scattered granulomata. Hyperintense enhancing lesion noted in the superior RIGHT lobe of the liver towards the diaphragm measures 14 x 12 mm. Consistent with a hemangioma with only minimal increase in size since 07/23/2012. There is an additional stable low-attenuation nodule measuring 10 mm in the posterior RIGHT lobe also stable and probably a small cyst. Portal vein is patent. No bile duct dilatation. Gallbladder has been re moved. Normal size spleen with granulomata. Normal size pancreas. No bile duct dilatation. No adrenal mass. Abdominal aorta: Moderate atherosclerotic plaque throughout the aorta. No aneurysm. Small amount of calcification at the origin of celiac axis and SMA. No thrombus or occlusion. Heavy calcification at the origin of the renal arteries. Slightly greater calcific deposition involving the origin of the LEFT renal artery. There is still enhancement within the renal arteries. RIGHT kidney: No RIGHT renal mass. There is a lobulated variable enhancing heterogeneous mass involving the RIGHT kidney. Mass involves the superior and mid posterior lateral kidney with a lobulated enhancing contour and central necrosis. Mass extends over length of 6.2 cm x 6.7 x 5.1 cm. Mass is extending into the renal pelvis causing bulging of the normal contour of the kidney. This mass was present in 2011 but has undergone significant increase in size. No thrombus identified in the renal vein. No renal obstruction. LEFT kidney: Mild perinephric stranding around the LEFT kidney. 13 mm cortical cyst upper pole. No obstruction. No GI tract obstruction. There are numerous diverticula in the sigmoid colon. T he appendix is been removed. Urinary bladder is moderately well distended. Marked enlargement of the prostate gland. Prostate measures 6.4 x 6.3 cm and extends over length of 7.4 cm. There is significant encroachment into the urinary bladder. No adjacent lymph nodes or adenopathy. Again noted is some mild soft tissue stranding in the anterior and RIGHT lateral abdominal wall. Intramuscular hematoma begins at the level of the lower RIGHT rib cage and there is variable density within the intercostal muscles in the muscles of the lateral thorax and abdominal wall. There is variable density but no area of active extravasation or bleeding. Since the prior examination there has been improvement in the extent of the hematoma in the fluid. Mild asymmetry of the inferior RIGHT rectus abdominis is very similar. There is no evidence for active extravasation. No acute fractures are identified. Postoperative changes are noted in the lumbar spine. CT/CT abdomen pelvis wo/w [id number] IMPRESSION: ? 1.? No increase in size or progression of the recently described hematomas in the RIGHT transversus abdominis muscles and the RIGHT rectus sheath. Hematomas are decreasing in size and there is no active extravasation. 2.? Large RIGHT renal mass consistent with a renal carcinoma now extends into the renal pelvis and has significantly increased in size since 2012. Mass flavio sures 6.2 x 6.7 x 5.1 cm. 3.? Markedly enlarged prostate gland and bladder. 4.? Long-term stability hepatic hemangioma and low-attenuation nodule which is probably a cyst. 5.? Moderate cardiomegaly. 6.? Prior cholecystectomy. 7.? No fracture. 8.? Heavy calcification at the origin of the renal arteries bilaterally. There is normal enhancement of the kidneys but there is probably greater than 50% st enosis of the renal arteries. ? ? Dictated By: Hawa Villagomez DO Signed By: Hawa Villagomez DO Signed Date/Time: 01/31/22901 DD/ 0835 A&P Assessment and plan (1) PAF (paroxysmal atrial fibrillation): rate controlled Status: Chronic (2) Hypertension: stable Status: Chronic Qualifiers: Hypertension type: primary hypertension Qualified Code(s): I10 - Essential (primary) hypertension (3) Renal mass: most likely Renal Ca Status: Chronic (4) Acute blood loss anemia: Due to trauma on Lovenox. H/H stable now Status: Acute (5) Abdominal wall hematoma: Not enlarged any further today Status: Acute Qualifiers: Encounter type: initial encounter Qualified Code(s): S30.1XXA - Contusion of abdominal wall, initial encounter (6) Hyponatremia: Na 123. Has worsened Status: Acute Plan Iv 3% NaCl @ 30 ml/hr upto 16 hrs 40 min Will need Urological f/u as outpt F/U Na, H/H Hold ACS Attestations Medical Necessity Statement*: Requires ongoing i npatient stay for continued monitori ng of expanding he matoma in the abdo jada wall and abd ominal musculature with continued do wnward trend in he moglobin though no t requiring transf usion presently.? Has other issues a s described.? Once he has been demon strated that he is not having ongoin g expansion of hem atoma and maintain ing stable H&H ant icipate discharge with close outpati ent follow-up. Time Spent in Patient Care: 40 min Coding Level of Care Code Acute Paradi Tender for Chg Fwd Diagnoses PAF (paroxysmal atrial fibrillation) I48.0 Hypertension I10 Hypertension type: primary hypertension Renal mass N28.89 Acute blood loss anemia D62 Abdominal wall hematoma S30.1XXA Encounter type: initial encounter Hyponatremia E87.1
[2022-01-31] MEDS: sodium chloride 3% 500 ML 30 ML IV (14:02)
[2022-01-31 14:39] LABS: Basophils % 0.2 %; Eosinophils % 0.2 %; Hematocrit 32.8 % (42.0-52.0); Hemoglobin 10.9 g/dL (11.7-16.6); Lymphocytes # 1.1 10^3/uL (0.8-4.8); Lymphocytes % 7.9 %; Mean Corpuscular HGB Conc 33.2 g/dL (30.0-36.0); Mean Corpuscular Hemoglobin 31.4 pg (28.0-34.0); Mean Corpuscular Volume 94.5 fl (80-94); Monocytes # 1.1 10^3/uL (0.2-0.9); Monocytes % 8.2 %; Neutrophils % 78.7 %; Nucleated Red Blood Cells % 0 %; Platelet Count 248 10^3/cmm (130-400); Red Blood Count 3.47 10^6/uL (4.1-5.3); Red Cell Distribution Width 13.2 % (12.1-15.1); White Blood Count 13.2 10^3/uL (4.0-10.0)
[2022-01-31 15:07] LABS: Anion Gap 12.1 (5-19); Blood Urea Nitrogen 15 mg/dL (8-23); Calcium 8.8 mg/dL (8.5-10.5); Carbon Dioxide 28 mmol/L (22-29); Chloride 89 mmol/L (98-107); Creatinine Clr Calc Pharmacy 66.0019; Glucose 115 mg/dL (65-115); Osmolality Calculated 262 mOsm/kg (285-295); Potassium 4.1 mmol/L (3.5-5.1); Sodium 125 mmol/L (136-145)
--- NOTE | 2022-01-31 15:52 | PC.NURSE ---
Patient had CT early this shift. Cough medication given by request. No pain reported. Vitals stable. Patient sodium dropped again, fluids being ran at 30 mls/hr. Patient took shower. Hematoma has not grown this shift. Will continue to monitor.
[2022-01-31] MEDS: acetaminophen 325 mg Tablet 650 MG PO (18:43)
[2022-02-01] VITALS: BP 126/62; PULSE 80; RESP 17; TEMP 36.6; O2SAT 90
[2022-02-01 04:00] VITALS: BP 124/62; PULSE 80; RESP 17; TEMP 36.7; O2SAT 90
[2022-02-01 05:54] LABS: Basophils # 0.1 10^3/uL (0.0-0.1); Basophils % 0.5 %; Eosinophils # 0.1 10^3/uL (0.0-0.8); Eosinophils % 0.4 %; Hematocrit 34.4 % (42.0-52.0); Hemoglobin 11.3 g/dL (11.7-16.6); Lymphocytes # 2.4 10^3/uL (0.8-4.8); Mean Corpuscular HGB Conc 32.8 g/dL (30.0-36.0); Mean Corpuscular Volume 94.2 fl (80-94); Mean Platelet Volume 10.1 fL (7.4-10.4); Monocytes # 1.6 10^3/uL (0.2-0.9); Monocytes % 11.3 %; Neutrophils # 9.44 10^3/uL (1.8-7.7); Neutrophils % 66.6 %; Nucleated Red Blood Cells % 0 %; Platelet Count 266 10^3/cmm (130-400); Red Blood Count 3.65 10^6/uL (4.1-5.3); Red Cell Distribution Width 13.3 % (12.1-15.1); White Blood Count 14.2 10^3/uL (4.0-10.0)
[2022-02-01 06:11] LABS: Anion Gap 13.1 (5-19); Blood Urea Nitrogen 12 mg/dL (8-23); Calcium 8.5 mg/dL (8.5-10.5); Carbon Dioxide 25 mmol/L (22-29); Chloride 94 mmol/L (98-107); Creatinine Clr Calc Pharmacy 66.0019; Glucose 111 mg/dL (65-115); Osmolality Calculated 266 mOsm/kg (285-295); Potassium 4.1 mmol/L (3.5-5.1); Sodium 128 mmol/L (136-145)
[2022-02-01] MEDS: azithromycin 250 mg Tablet 500 MG PO (08:15)
[2022-02-01] MEDS: finasteride 5 mg Tablet PO (08:15)
[2022-02-01] MEDS: metoprolol tartrate 25 mg Tablet 12.5 MG PO (08:16)
[2022-02-01] MEDS: benzonatate 100 mg Capsule 200 MG PO (08:16)
[2022-02-01] MEDS: atorvastatin 40 mg Tablet 20 MG PO (08:16)
[2022-02-01] MEDS: tamsulosin 0.4 mg Capsule PO (08:16)
[2022-02-01] MEDS: guaiFENesin 600 mg Tablet 1200 MG PO (08:16)
[2022-02-01] MEDS: amlodipine 5 mg Tablet PO (08:16)
[2022-02-01] MEDS: pantoprazole DR 40 mg Tablet PO (08:16)
[2022-02-01] MEDS: fluticasone nasal spray 16gm Btl 1 SPRAY NASAL (08:17)
[2022-02-01] MEDS: predniSONE 10 mg Tablet PO (08:17)
[2022-02-01 08:31] VITALS: PULSE 82; RESP 17; O2SAT 96
[2022-02-01] MEDS: albuterol 8 gm MDI 2 PUFF INHALATION (08:31)
[2022-02-01 12:00] VITALS: BP 124/62; RESP 17; TEMP 36.7; O2SAT 96
--- NOTE | 2022-02-01 14:01 | P.DS_ITS ---
Discharge Providers Date of Admission: 01/26/22 15:52 Date of Discharge: February 01, 2022 Attending Provider at Admission: Fabián Monge MD Attending Provider at Discharge: Gianluca Silva MD Primary Care Provider: Lynne Camp MD Diagnoses at Discharge Discharge Diagnosis (1) PAF (paroxysmal atrial fibrillation): Status: Chronic (2) Hypertension: Status: Chronic Qualifiers: Hypertension type: primary hypertension Qualified Code(s): I10 - Essential (primary) hypertension (3) Renal mass: Status: Chronic (4) Acute blood loss anemia: Status: Acute (5) Abdominal wall hematoma: Status: Acute Qualifiers: Encounter type: initial encounter Qualified Code(s): S30.1XXA - Contusion of abdominal wall, initial encounter (6) Hyponatremia: Status: Acute Reason for Visit Reason for Visit: Mucus build up, cough Hospital Course Hospital Course Delfin Deng is a 86 year old male with past medical history of hypertension, paroxysmal atrial fibrillation ,? cardiac pacemaker placement , Hx of radioactive iodine thyroid ablation, Renal mass, came in with chief complaint of shortness of breath ,? nonproductive cough , runny nose , postnasal drip , headache, going on for about a week , he was seeing his primary care physician for the same problem and was on steroids antibiotics and inhaler. He denies any fever, chills, fatigue, nausea ,? vomiting , tingling , numbness. Upon arrival in the ER he was worked up for above mentioned complaint: Pertinent imaging studies: X-ray chest:?: No nodules, masses or effusions are seen Pertinent labs: WBC 13.7, H&H 12 ..5 / 37 , PLT : 258 , Serum sodium 119 , serum potassium 4.2 , BUN / serum creatinine 12/ 0 .5 , Pt was admitted to Medsurg unit. He was treated for Ac Bronchitis w. bronchodilators, steroid and Azithromycin. He responded well to this. However he developed a large hematoma over his rt flank, extending to his groin. CT Abd Pelvis showed the hematoma in his abdominal subcutaneous tississue. Incidentally noted was a large rt renal mass suspicious for malignancy. and enlarged prostate. The hematoma was thought to have resulted from a very recent abdominal trauma at his home and being started on Lovenox for DVT prophylaxis. The hematoma did not increase in size after the Lovenox was d/c. H/H remained stable. He also had significant hyponatremis w/ Na of 117. He received a dose of 3% NaCl Ladan IV. His Na level was 128 at time of d/c. He was given NaCl tab. BMP needs to be f/u. He was recommended to f/u w/ Urologist regarding his Renal mass. VSS remained stable Physical Exam Narrative: Constitutional: Awake and alert, cooperative HEENT: Normocephalic, moist mucous membranes Respiratory: Clear to auscultation bilaterally presently without any rales rhonchi or wheezes noted Cardiovascular: Regular rhythm Abdomen: Soft, extensive hematoma noted going from periumbilical and substernal area around to the right flank and extending to the back.? Reaches from above the umbilicus to the groin.? Extension of the hematoma has been marked daily and has extended an additional few inches from prior with some induration in the lower parts of the pannus today although not tender to palpation.? Bowel sounds are positive. Extremities: No pitting edema Neuro: Speech clear, face symmetric, normal gait Other: Normal affect Discharge Data Studies Completed and Pending Completed Studies During Hospitalization Category Date Time Status CT abdomen pelvis wo con [id number] Routine Cat Scan 01/27/22 14:[address] abdomen pelvis wo/w [id number] Routine Cat Scan 01/31/22 07:00 Completed XR chest 2V* [id number] Urgent Exams 01/26/22 10:51 Completed US renal BI* [id number] Routine Ultrasound 01/26/22 18:51 Completed Radiology Impressions Chest X-Ray 01/26/22 10:51 Impression: 1. Cardiomegaly and atherosclerosis. 2. Cardiac pacemaker. Renal Ultrasound 01/26/22 18:51 IMPRESSION: 1. Quality of this examination is limited especially involving the RIGHT kidney and evaluation of the known RIGHT renal mass. Large area of bruising and hematoma which is superficial obscuring details of the kidney. The mass is identified measuring 5.3 x 4.5 cm involving the kidney. Recommend short-term follow-up. This mass may have increased in size. Consider ultrasound follow-up after patient's subcutaneous hematoma and bruising resolved. 2. No hydronephrosis identified. 3. Prostate gland enlargement. Abdomen/Pelvis CT 01/31/22 07:00 IMPRESSION: 1. No increase in size or progression of the recently described hematomas in the RIGHT transversus abdominis muscles and the RIGHT rectus sheath. Hematomas are decreasing in size and there is no active extravasation. 2. Large RIGHT renal mass consistent with a renal carcinoma now extends into the renal pelvis and has significantly increased in size since 2011. Mass measures 6.2 x 6.7 x 5.1 cm. 3. Markedly enlarged prostate gland and bladder. 4. Long-term stability hepatic hemangioma and low-attenuation nodule which is probably a cyst. 5. Moderate cardiomegaly. 6. Prior cholecystectomy. 7. No fracture. 8. Heavy calcification at the origin of the renal arteries bilaterally. There is normal enhancement of the kidneys but there is probably greater than 50% stenosis of the renal arteries. Laboratory Results WBC 14.2 10^3/uL (4.0-10.0) H 02/01/22 05:13 RBC 3.65 10^6/uL (4.1-5.3) L 02/01/22 05:13 Hgb 11.3 g/dL (11.7-16.6) L 02/01/22 05:13 Hct 34.4 % (42.0-52.0) L 02/01/22 05:13 MCV 94.2 fl (80-94) H 02/01/22 05:13 MCH 31.0 pg (28.0-34.0) 02/01/22 05:13 MCHC 32.8 g/dL (30.0-36.0) 02/01/22 05:13 RDW 13.3 % (12.1-15.1) 02/01/22 05:13 Plt Count 266 10^3/cmm (130-400) 02/01/22 05:13 MPV 10.1 fL (7.4-10.4) 02/01/22 05:13 Neut % (Auto) 66.6 % 02/01/22 05:13 Lymph % (Auto) 17.0 % 02/01/22 05:13 Amelia % (Auto) 11.3 % 02/01/22 05:13 Eos % (Auto) 0.4 % 02/01/22 05:13 Baso % (Auto) 0.5 % 02/01/22 05:13 Neut # (Auto) 9.44 10^3/uL (1.8-7.7) H 02/01/22 05:13 Lymph # (Auto) 2.4 10^3/uL (0.8-4.8) 02/01/22 05:13 Amelia # (Auto) 1.6 10^3/uL (0.2-0.9) H 02/01/22 05:13 Eos # (Auto) 0.1 10^3/uL (0.0-0.8) 02/01/22 05:13 Baso # (Auto) 0.1 10^3/uL (0.0-0.1) 02/01/22 05:13 Nucleated RBC % (auto) 0 % 02/01/22 05:13 Total Counted 100 (0-100) 01/30/22 05:39 Atypical Lymphs % 1.0 % (0-5) 01/30/22 05:39 Absolute Neutrophils 10.0 10^3/cmm (1.4-6.5) H 01/30/22 05:39 Segmented Neutrophils 72 % 01/30/22 05:39 Abs Segm Neuts (Man) 9.6 10/cmm (1.6-7.1) H 01/30/22 05:39 Band Neutrophils 3.0 % 01/30/22 05:39 Abs Band Neuts (Man) 0.4 10^3/cmm (0.0-1.2) 01/30/22 05:39 Absolute Lymphocytes 1.1 10^3/cmm (1.2-3.4) L 01/30/22 05:39 Lymphocytes (Manual) 7 % 01/30/22 05:39 Monocytes (Manual) 12.0 % 01/30/22 05:39 Absolute Monocytes 1.6 10^3/cmm (0.1-0.6) H 01/30/22 05:39 Eosinophils (Manual) 1 % 01/30/22 05:39 Absolute Eosinophils 0.1 10^3/cmm (0.0-0.7) 01/30/22 05:39 Basophils (Manual) 0.0 % 01/30/22 05:39 Absolute Basophils 0.0 10^3/cmm (0.0-0.2) 01/30/22 05:39 Metamyelocytes 2.0 % 01/30/22 05:39 Myelocytes 2.0 % 01/30/22 05:39 Nucleated RBCs # 0.0 /100WBC 02/01/22 05:13 Platelet Estimate Normal (Normal) 01/30/22 05:39 Poikilocytosis 1+ H 01/30/22 05:39 PT 13.60 SECONDS (12.1-14.9) 01/29/22 22:30 INR 1.01 (0.8-1.2) 01/29/22 22:30 APTT 26.7 SECONDS (23.9-36.7) 01/29/22 22:30 Fibrinogen 277 mg/dL (174-498) 01/29/22 22:30 Sodium 128 mmol/L (136-145) L 02/01/22 05:13 Potassium 4.1 mmol/L (3.5-5.1) 02/01/22 05:13 Chloride 94 mmol/L (98-107) L 02/01/22 05:13 Carbon Dioxide 25 mmol/L (22-29) 02/01/22 05:13 Anion Gap 13.1 (5-19) 02/01/22 05:13 BUN 12 mg/dL (8-23) 02/01/22 05:13 Creatinine 0.6 mg/dL (0.7-1.2) L 02/01/22 05:13 GFR Calculation Not Reportable 02/01/22 05:13 Glucose 111 mg/dL (65-115) 02/01/22 05:13 Serum Osmolality 251 mOsm/kg (278-305) L 01/27/22 06:24 Calculated Osmolality 266 mOsm/kg (285-295) L 02/01/22 05:13 Uric Acid 2.2 mg/dL (3.4-7.0) L 01/31/22 05:32 Calcium 8.5 mg/dL (8.5-10.5) 02/01/22 05:13 Magnesium 1.7 mg/dL (1.7-2.3) 01/31/22 05:32 Total Bilirubin 0.7 mg/dL (0.15-1.2) 01/30/22 05:39 AST 23 U/L (0-40) 01/30/22 05:39 ALT 17 U/L (0-41) 01/30/22 05:39 Alkaline Phosphatase 65 IU/L (40-130) 01/30/22 05:39 Troponin T Gen 5 ng/L 14 ng/L (0-15) 01/27/22 00:29 Troponin T 120 Minute 15.82 ng/L (0-15) H 01/27/22 02:28 Delta Troponin T 1.82 ABS# (0-10) 01/27/22 02:28 Troponin T Hi Sens 6Hr 15.42 ng/L (0-15) H 01/27/22 06:24 Troponin T Hi Sens 6Hr Delta 1.42 ng/L (0-12) 01/27/22 06:24 C-Reactive Protein 7.8 mg/L (0.0-4.9) H 01/26/22 11:14 Total Protein 5.5 g/dL (6.6-8.7) L 01/30/22 05:39 Albumin 2.9 g/dL (3.5-5.2) L 01/30/22 05:39 Globulin 2.6 g/dL (1.3-4.6) 01/30/22 05:39 Lipase 34 U/L (13-60) 01/27/22 12:05 TSH 0.79 uIU/mL (0.27-4.20) 01/27/22 06:24 Random Cortisol 1.86 ug/dL (2.47-19.5) L 01/27/22 06:24 Urine Color Yellow (Yellow) 01/26/22 21:09 Urine Appearance Clear (CLEAR) 01/26/22 21:09 Urine pH 6 (5-7) 01/26/22 21:09 Ur Specific [place] 1.020 (1.005-1.030) 01/26/22 21:09 Urine Protein Neg (Negative) 01/26/22 21:09 Urine Glucose (UA) Norm (Normal) 01/26/22 21:09 Urine Ketones Negative (Negative) 01/26/22 21:09 Urine Blood Neg (Negative) 01/26/22 21:09 Urine Nitrate Negative (Negative) 01/26/22 21:09 Urine Bilirubin Neg (Negative) 01/26/22 21:09 Urine Urobilinogen Norm mg/dL (Negative) 01/26/22 21:09 Ur Leukocyte Esterase Negative (Negative) 01/26/22 21:09 Urine Osmolality 574 mOsm/kg (50-1200) 01/26/22 21:09 Ur Random Sodium 46 mmol/L 01/26/22 21:09 Coronavirus 229E (PCR) Not detected (NOT DETECT) 01/29/22 05:45 SARS-CoV-2 (PCR) Not detected (NOT DETECT) 01/29/22 05:45 SARS-CoV-2 Ag (Rapid) Negative (Negative) 01/27/22 11:50 Vitals Last Vital Signs Temp 98.0 F 02/01/22 12:00 Pulse 82 02/01/22 08:31 Resp 17 02/01/22 12:00 BP 124/62 02/01/22 12:00 Pulse Ox 96 02/01/22 12:00 Discharge Plan Discharge Patient Disposition: Home Condition: Stable Prescriptions: [place] Nasal 0.65 % Aerosol,[place] 1 spray nasal PRN PRN (Reason: Dryness) 10 Days 0RF prednisone 5 mg tablet 5 mg PO BID 2 Days Qty: 4 0RF sodium chloride 1 gram tablet 1,000 mg PO BID 10 Days Qty: 20 0RF Continued metoprolol tartrate 25 mg tablet 12.5 mg PO DAILY 0RF pantoprazole 40 mg tablet,delayed release (DR/EC) 40 mg PO BID Qty: 180 1RF albuterol sulfate [ProAir HFA] 90 mcg/actuation HFA aerosol inhaler 2 puff inhalation QID PRN (Reason: shortness of breath or wheezing) Qty: 8.5 6RF budesonide-formoterol [Symbicort] 160-4.5 mcg/actuation HFA aerosol inhaler 2 puff inhalation BID Qty: 10.2 6RF Mucinex Fast-Max DM Max 5-100 mg/5 mL liquid 10 ml PO Q6H PRN (Reason: cough) Qty: 200 0RF docusate sodium [Colace] 100 mg capsule 100 mg PO BID Qty: 30 0RF Advair Diskus 100-50 mcg/dose blister with device 2 inh INHALATION BID 0RF amlodipine 5 mg tablet 5 mg PO DAILY 0RF simvastatin 40 mg tablet 40 mg PO DAILY 0RF tamsulosin 0.4 mg capsule 0.4 mg PO DAILY 0RF finasteride 5 mg tablet 5 mg PO DAILY 0RF Discontinued magnesium oxide 400 mg magnesium tablet 400 mg PO DAILY 0RF aspirin 325 mg tablet 325 mg PO DAILY 0RF Hold Instructions: Resume on 10/09/21. methylprednisolone [Medrol (Cornel[place])] 4 mg tablets,dose pack See Rx Instructions PO PER PKG DIR Qty: 21 0RF Rx Instructions: PO PER PKG DIR lisinopril 10 mg tablet 10 mg PO DAILY Qty: 90 1RF Discharge Orders: Discharge Order (Routine); Ordered 02/01/22 Ordered By: Gianluca Silva Referrals: Ruddy Valenzuela MD [Physician] - 02/06/22 2:30 pm Lynne Camp MD [Primary Care Provider] - 02/09/22 3:00 pm Discharge Diet: Usual diet Discharge Activity: Resume usual activity Patient Instructions: Opioid Safety Discharge Attestations Time Spent in Discharge Care*: greater than 30 min Specific Discharge Activities: Other discharge activites (optional): Pt recommended to consult Urologist for his Rt Renal Mass Quality Metrics Clinical Quality Measures [ No reported AMI, CVA or VTE this stay] Coding Level of Care Code Acute Chg FW DC note Diagnoses PAF (paroxysmal atrial fibrillation) I48.0 Hypertension I10 Hypertension type: primary hypertension Renal mass N28.89 Acute blood loss anemia D62 Abdominal wall hematoma S30.1XXA Encounter type: initial encounter Hyponatremia E87.1
--- NOTE | 2022-02-01 14:15 | PC.NURSE ---
Discharge teaching and education were done with patient and , all questions were answered at this time. IV discontinued. Vitals stable. Medications sent to patients preferred pharmacy.
[2022-02-01 14:17] VITALS: BP 124/62; PULSE 82; RESP 17; TEMP 36.7; O2SAT 96
== END 2022-02-01 14:47 | disposition home or self-care (01) | DRG 641 ==
LOC: ER 16:47 → MEDSURG 17:27
PROVIDERS: Family Medicine; Hospitalist; Internal Medicine; Admitting Provider Internal Medicine; Emergency Provider Emergency Medicine; PCP Family Medicine; Visit Provider Internal Medicine
DX: E87.1 Hypo-osmolality and hyponatremia (principal); D62 Acute posthemorrhagic anemia; I42.9 Cardiomyopathy, unspecified; J20.9 Acute bronchitis, unspecified; I48.0 Paroxysmal atrial fibrillation; I10 Essential (primary) hypertension; N28.89 Other specified disorders of kidney and ureter; S30.1XXA Contusion of abdominal wall, initial encounter; X58.XXXA Exposure to other specified factors, initial encounter; Y92.019 Unspecified place in single-family (private) house as the place of occurrence of the external cause; N40.1 Benign prostatic hyperplasia with lower urinary tract symptoms; J32.0 Chronic maxillary sinusitis; J30.9 Allergic rhinitis, unspecified; E78.2 Mixed hyperlipidemia; Z95.0 Presence of cardiac pacemaker; Z92.3 Personal history of irradiation; Z79.82 Long term (current) use of aspirin
CPT/HCPCS: 36415; 71046; 72020; 74176; 74178; 76770; 76857; 80048; 80053; 81003; 82533; 83690; 83735; 83930; 83935; 84295; 84300; 84443; 84484; 84550; 85007; 85018; 85025; 85049; 85384; 85610; 85730; 86140; 87426; 87635; 93005; 94640; 96361; 96372; 96374; 99285; J0456; J1100; J1650; J3475; J3535; J7040; J7050; J7131; J7512; Q0144; Q9967

== ENCOUNTER → 2022-02-06 13:15 | Outpatient (BNVA) | payer MEDICARE, OTHER, SELFPAY | PROVIDERS: PCP Family Medicine; Visit Provider Urology | DX: N40.1 Benign prostatic hyperplasia with lower urinary tract symptoms (principal); N13.8 Other obstructive and reflux uropathy | CPT/HCPCS: 81003 ==

== ENCOUNTER → 2022-02-09 16:07 | Outpatient (BNVA) | payer MEDICARE, OTHER, SELFPAY | PROVIDERS: PCP Family Medicine; Visit Provider Family Medicine | DX: Z09 Encounter for follow-up examination after completed treatment for conditions other than malignant neoplasm (principal); E87.1 Hypo-osmolality and hyponatremia; D64.9 Anemia, unspecified | CPT/HCPCS: 80053; 85025 ==

== ENCOUNTER → 2022-05-17 09:55 | Outpatient (BNVA) | payer MEDICARE, OTHER, SELFPAY | PROVIDERS: PCP Family Medicine; Visit Provider Family Medicine | DX: I10 Essential (primary) hypertension (principal); E78.5 Hyperlipidemia, unspecified; D64.9 Anemia, unspecified; I48.91 Unspecified atrial fibrillation | CPT/HCPCS: 80053; 80061; 84443; 85025 ==

== ENCOUNTER → 2022-05-23 09:26 | Outpatient (BNVA) | payer MEDICARE, OTHER, SELFPAY | PROVIDERS: PCP Family Medicine; Visit Provider Family Medicine | DX: R79.89 Other specified abnormal findings of blood chemistry (principal); I10 Essential (primary) hypertension; R94.6 Abnormal results of thyroid function studies | CPT/HCPCS: 84439; 84443; 84481 ==

== ENCOUNTER → 2022-10-13 14:51 | Outpatient (BNVA) | payer MEDICARE, OTHER, SELFPAY | PROVIDERS: PCP Family Medicine; Visit Provider Nurse Practitioner Family | DX: R50.9 Fever, unspecified (principal); J06.9 Acute upper respiratory infection, unspecified | CPT/HCPCS: 87400 ==

== ENCOUNTER 2023-01-30 13:40 | Outpatient (CLI) | payer MEDICARE, OTHER, SELFPAY | END 2023-01-30 13:41 | disposition home or self-care (01) | PROVIDERS: PCP Family Medicine; Visit Provider Internal Medicine Cardiovascular Disease | DX: I49.5 Sick sinus syndrome (principal) | CPT/HCPCS: 94010; 94726; 94729 ==

== ENCOUNTER → 2023-02-19 10:22 | Outpatient (BNVA) | payer MEDICARE, OTHER, SELFPAY | PROVIDERS: PCP Family Medicine; Visit Provider Internal Medicine Cardiovascular Disease | DX: I49.5 Sick sinus syndrome (principal) | CPT/HCPCS: 71046; 80076; 84439 ==

== ENCOUNTER → 2023-04-24 16:33 | Outpatient (BNVA) | payer MEDICARE, OTHER, SELFPAY | PROVIDERS: PCP Family Medicine; Visit Provider Family Medicine | DX: E03.9 Hypothyroidism, unspecified (principal); I10 Essential (primary) hypertension | CPT/HCPCS: 84443 ==

== ENCOUNTER → 2023-05-14 11:53 | Outpatient (BNVA) | payer MEDICARE, OTHER, SELFPAY | PROVIDERS: PCP Family Medicine; Visit Provider Family Medicine | DX: E03.9 Hypothyroidism, unspecified (principal); I10 Essential (primary) hypertension; E78.5 Hyperlipidemia, unspecified | CPT/HCPCS: 80053; 80061; 84443; 85025; G0103 ==

== ENCOUNTER → 2023-10-09 16:30 | Outpatient (BNVA) | payer MEDICARE, OTHER, SELFPAY | PROVIDERS: PCP Family Medicine; Visit Provider Nurse Practitioner Family | DX: J20.9 Acute bronchitis, unspecified (principal); R05.9 Cough, unspecified; J18.9 Pneumonia, unspecified organism | CPT/HCPCS: 71046; 80053 ==

== ENCOUNTER → 2023-10-10 08:07 | Outpatient (BNVA) | payer MEDICARE, OTHER, SELFPAY | PROVIDERS: PCP Family Medicine; Visit Provider Nurse Practitioner Family | DX: J20.9 Acute bronchitis, unspecified (principal); R05.9 Cough, unspecified | CPT/HCPCS: 85025 ==

== ENCOUNTER → 2024-02-14 14:55 | Outpatient (BNVA) | payer MEDICARE, OTHER, SELFPAY | PROVIDERS: PCP Family Medicine; Visit Provider Family Medicine | DX: J20.9 Acute bronchitis, unspecified (principal) | CPT/HCPCS: 80048 ==

== ENCOUNTER → 2024-02-18 14:45 | Outpatient (BNVA) | payer MEDICARE, OTHER, SELFPAY | PROVIDERS: PCP Family Medicine; Visit Provider Family Medicine | DX: I50.9 Heart failure, unspecified (principal) | CPT/HCPCS: 80053 ==

== ENCOUNTER → 2024-03-11 17:17 | Outpatient (BNVA) | payer MEDICARE, OTHER, SELFPAY | PROVIDERS: PCP Family Medicine; Visit Provider Family Medicine | DX: I50.9 Heart failure, unspecified (principal) | CPT/HCPCS: 80053 ==